=== PATIENT | female | born 1940 | race Caucasian/White ===

== ENCOUNTER 2018-02-18 16:41 | Inpatient (IN) | payer MEDICARE ==
[~2018-02-18] VITALS: Ht 152.4 cm; Wt 76.7 kg
[2018-02-18 17:01] VITALS: BP 105/84
[2018-02-18] MEDS ORDERED: ONDANSETRON ODT 4 MG TAB.RAPDIS PO PRN (18:15)
--- NOTE | 2018-02-18 18:27 | EKG ---
[address] [address] Test Date: 2018-02-18 Test Time: 18:07:09 Pat Name: ODILIA ROWAN Department: Room: 119 A Gender: F Director Of Audiology: ABHINAV : 1940 Requested By: KOURTNEY RUIZ Order Number: [id number] Reading MD: Everett Salazar MD Measurements Intervals [place] Rate: 152 P: [place]: QRS: 125 QRSD: 86 T: -42 QT: 308 QTc: 497 Interpretive Statements ATRIAL FIBRILLATION WITH RVR NON-SPECIFIC ST/T CHANGES CONSIDER PRIOR ANTERIOR INFARCT Electronically Signed On 02-23-2018 10:16:03 CDT by Everett Salazar MD
[2018-02-18 19:50] VITALS: BP 156/91
[2018-02-18 19:53] LABS: BASO % 0 % (0-3); EOS % 0 % (0-3); HEMOGLOBIN 14.6 g/dL (12.0-15.5); LYMPH # 1.6 x10^3/uL (1.0-4.8); LYMPH % 17 % (24-48); MEAN CORPUSCULAR HEMOGLOBIN 32 pg (25-35); MEAN CORPUSCULAR HGB CONC 34 g/dL (31-37); MEAN CORPUSCULAR VOLUME 94 fL (79-100); MONO # 0.9 x10^3/uL (0.0-1.1); MONO % 10 % (0-9); NEUT % 73 % (31-73); PLATELET COUNT 157 x10^3/uL (140-400); RED BLOOD COUNT 4.59 x10^6/uL (3.50-5.40); RED CELL DISTRIBUTION WIDTH 14.2 % (11.5-14.5); WHITE BLOOD COUNT 9.5 x10^3/uL (4.0-11.0)
[2018-02-18 20:03] LABS: ALBUMIN 3.5 g/dL (3.4-5.0); CALCIUM 8.8 mg/dL (8.5-10.1); CREATININE 0.6 mg/dL (0.6-1.0); GFR 96.4; POTASSIUM 3.4 mmol/L (3.5-5.1); TOTAL BILIRUBIN 0.9 mg/dL (0.2-1.0)
[2018-02-18] MEDS: IV NORMAL SALINE 1,000ML 1,000 ML IV SCH (20:11)
[2018-02-18] MEDS ORDERED: CYAN10005 PO (20:14)
[2018-02-18] MEDS ORDERED: LISI1TAB7 PO (20:14)
[2018-02-18] MEDS ORDERED: ASCO500T2 PO (20:14)
[2018-02-18] MEDS ORDERED: POTA20TA4 PO (20:14)
[2018-02-18] MEDS ORDERED: VERA240C2 PO (20:14)
[2018-02-18] MEDS ORDERED: CALC-157 PO (20:14)
[2018-02-18] MEDS ORDERED: OCCUVITE PO (20:14)
[2018-02-18] MEDS ORDERED: LEVO137T3 PO (20:14)
[2018-02-18] MEDS ORDERED: MELO7.5T29 PO (20:14)
[2018-02-18] MEDS ORDERED: FLUT1AER IH (20:22)
[2018-02-18] MEDS ORDERED: BUDESONIDE 0.5 MG/2 ML NEBU ONE (20:26)
[2018-02-18] MEDS ORDERED: ALBUTEROL SULFATE 2.5 MG/3 ML NEBU. ONE (20:26)
[2018-02-18] MEDS: ENOXAPARIN 40 MG/0.4 ML DISP.SYRIN. SQ SCH (21:00)
[2018-02-18 21:12] LABS: SEDIMENTATION RATE 20 (0-25)
[2018-02-18 21:45] LABS: BILIRUBIN,URINE NEG (NEG); CLARITY,URINE CLOUDY; COLOR,URINE YELLOW; GLUCOSE,URINE NEG (NEG); NITRITE,URINE NEG (NEG); UROBILINOGEN,URINE 1 mg/dL (0.2 mg/dL)
[2018-02-18 21:46] LABS: BACTERIA,URINE MOD /HPF (0-FEW); SQUAMOUS EPITHELIAL CELL,UR MANY /LPF; WBC,URINE >40 /HPF (0-4)
[2018-02-18 23:08] VITALS: BP 104/67
[2018-02-19] MEDS ORDERED: ALBUTEROL SULFATE 2.5 MG/3 ML NEBU. ONE (04:25)
[2018-02-19] MEDS: IV NORMAL SALINE 1,000ML 1,000 ML IV SCH ×3 (05:04→20:44)
[2018-02-19] MEDS: ALBUTEROL SULFATE 2.5 MG/3 ML NEBU. NEB SCH ×4 (05:42→20:08)
[2018-02-19 05:52] VITALS: BP 145/90
--- NOTE | 2018-02-19 07:37 | RAD ---
CT of the abdomen and pelvis without contrast, 02/18/2018: HISTORY: Vomiting and diarrhea Multidetector CT imaging was performed without oral or IV contrast as requested. There are mild streaky bibasilar opacities compatible with scarring and/or atelectasis. Right basilar parenchymal calcifications are present. There is a small pericardial effusion. Moderate scattered coronary artery calcifications are present. There are calcified granulomata in the liver and spleen. A small radiopacity is noted along the posterior wall the gallbladder compatible with a gallstone. No pericholecystic edema or gallbladder wall thickening is evident. No pancreatic mass is evident. Scattered calcifications in the pancreatic region are probably vascular. The spleen is of normal size. A small cortical cyst is noted along the posterior aspect of the left kidney. The unopacified kidneys are otherwise unremarkable without evidence of obstruction. Moderate aortoiliac calcific plaquing and tortuosity is present without evidence of aneurysm. No abdominal or pelvic adenopathy is seen. The uterus is surgically absent. Several sigmoid diverticula are noted without evidence of paracolic inflammation. The bowel loops are not dilated. The appendix is not clearly visualized. No dilated appendix or pericecal inflammatory process is seen. No free fluid or free air is evident in the abdomen or pelvis. There are moderate scattered degenerative changes in the spine with moderate degenerative disc disease at L5-S1. There is a mild anterolisthesis at L4-5 due to facet joint arthropathy. IMPRESSION: 1. Cholelithiasis. 2. Mild colonic diverticulosis. 3. Small pericardial effusion. 4. Coronary artery disease. 5. Moderate streaky bibasilar scarring and/or atelectasis. Electronically signed by: Juan Antonio Hitchcock MD (02/19/2018 7:34 AM) [facility]
[2018-02-19] MEDS ORDERED: CIPROFLOXACIN 400MG PREMIX 200 ML IV SCH (09:00)
[2018-02-19] MEDS ORDERED: NON FORMULARY ITEM (Fluticasone/Vilanterol (Breo Ellipta 100-25 Mcg Inh) 1 PUFF) IH SCH (09:00)
[2018-02-19 09:35] LABS: BASO % 1 % (0-3); EOS % 0 % (0-3); HEMATOCRIT 42.1 % (36.0-47.0); HEMOGLOBIN 14.1 g/dL (12.0-15.5); LYMPH # 0.8 x10^3/uL (1.0-4.8); LYMPH % 11 % (24-48); MEAN CORPUSCULAR HEMOGLOBIN 32 pg (25-35); MEAN CORPUSCULAR HGB CONC 34 g/dL (31-37); MEAN CORPUSCULAR VOLUME 94 fL (79-100); MONO # 0.8 x10^3/uL (0.0-1.1); MONO % 11 % (0-9); NEUT % 78 % (31-73); PLATELET COUNT 138 x10^3/uL (140-400); RED BLOOD COUNT 4.46 x10^6/uL (3.50-5.40); RED CELL DISTRIBUTION WIDTH 13.8 % (11.5-14.5); WHITE BLOOD COUNT 7.7 x10^3/uL (4.0-11.0)
[2018-02-19] MEDS: MULTIVITAMIN I-VITE TABLET. PO SCH (09:37)
[2018-02-19] MEDS: LISINOPRIL 20 MG TABLET PO SCH (09:38)
[2018-02-19] MEDS: hydroCHLOROthiazide 25 MG TABLET PO SCH (09:38)
[2018-02-19] MEDS: LEVOTHYROXINE 137 MCG TABLET PO SCH (09:38)
[2018-02-19] MEDS: POTASSIUM CHLORIDE 20 MEQ TABLET.ER. PO SCH (09:39)
[2018-02-19] MEDS: ASCORBIC ACID 500 MG TABLET PO SCH (09:39)
[2018-02-19] MEDS: ENOXAPARIN 40 MG/0.4 ML DISP.SYRIN. SQ SCH (09:40)
[2018-02-19 09:51] LABS: CREATININE 0.7 mg/dL (0.6-1.0); GFR 80.7
[2018-02-19 09:53] LABS: POTASSIUM 2.8 mmol/L (3.5-5.1)
[2018-02-19] MEDS ORDERED: POTASSIUM CHLORIDE 20 MEQ TABLET.ER. PO ONE ×2 (10:00→11:00)
[2018-02-19] MEDS: BUDESONIDE 0.5 MG/2 ML NEBU NEB SCH ×2 (10:42→20:08)
[2018-02-19 10:52] VITALS: BP 164/89
--- NOTE | 2018-02-19 11:28 | EKG ---
[address] [address] Test Date: 2018-02-19 Test Time: 11:25:16 Pat Name: ODILIA ROWAN Department: Room: 119 A Gender: F Traffic Coordinator: : 1940 Requested By: KOURTNEY RUIZ Order Number: [id number] Reading MD: Everett Salazar MD Measurements Intervals [place] Rate: 140 P: [place]: QRS: 108 QRSD: 86 T: -42 QT: 314 QTc: 483 Interpretive Statements ATRIAL FIBRILLATION WITH RVR LEFT POSTERIOR FASCICULAR BLOCK NON-SPECIFIC ST/T CHANGES Electronically Signed On 02-23-2018 10:17:49 CDT by Everett Salazar MD
[2018-02-19] MEDS: POTASSIUM CHLORIDE 20MEQ 100 ML IV SCH ×2 (11:59→12:49)
[2018-02-19] MEDS ORDERED: ELECTROLYTE (NON-ICU) PROTOCOL MC PRN (12:00)
[2018-02-19] MEDS ORDERED: ENOXAPARIN 40 MG/0.4 ML DISP.SYRIN. SQ SCH (12:15)
[2018-02-19] MEDS ORDERED: METOPROLOL TARTRATE 5 MG/5 ML VIAL. IV PRN (12:30)
[2018-02-19] MEDS: METOPROLOL TART IMMED RELEASE 50 MG TABLET PO SCH ×2 (12:49→20:41)
[2018-02-19] MEDS: APIXABAN 5 MG TABLET. PO SCH ×2 (12:49→20:41)
[2018-02-19] MEDS ORDERED: MAGNESIUM SULFATE 1GM 100 ML IV ONE (13:00)
--- NOTE | 2018-02-19 13:23 | PDOC2 ---
CARDIAC CONSULT DATE OF CONSULT Date Of Consult DATE: 02/19/18 TIME: 12:58 REASON FOR CONSULT Reason for Consult Atrial fibrillation with RVR REFERRING PHYSICIAN Referring Physician Joshua Sy MD HPI History of Present Illness Ms. Claros is a very pleasant 77-year-old female who is currently hospitalized after presenting with several day history of progressively worsening nausea, vomiting, and diarrhea. The patient does have a history of essential hypertension, hypothyroidism on thyroid replacement therapy, and obesity. She was last seen in our office by my associate, Keila Duran APRN, approximately 7 years ago. At that time, the patient did undergo an extensive cardiovascular evaluation which included a nuclear stress test and echocardiogram which were unremarkable. Unfortunately, she was subsequently lost to follow-up. During her hospitalization, the patient was noted to be in atrial fibrillation with rapid ventricular rate. It is not completely clear for how long the patient has been in such rhythm. Today, she reports that she has been having symptoms of chest tightness, but denies any actual chest pain symptoms. She has not been able to identify any exacerbating or relieving factors. Her workup did include electrolytes which demonstrated significant hypokalemia as well as mild hypomagnesemia. In addition, the patient did have a CT of the abdomen and pelvis which incidentally demonstrated evidence of coronary atherosclerosis. The patient denies any actual symptoms of palpitations, has not had any significant lightheadedness or syncope. She has otherwise remained hemodynamically stable without any further complaints. PAST MEDICAL HISTORY Cardiovascular: CAD, HTN Endocrine: Hypothyroidism PAST SURGICAL HISTORY Past Surgical History: No pertinent history FAMILY HISTORY Family History: No Significant SOCIAL HISTORY Smoke: No ALCOHOL: rare Drugs: None CURRENT MEDICATIONS Current Medications Current Medications Sodium Chloride 1,000 ml @ 100 mls/hr Q10H IV Last administered on 02/19/18at 05 :04; Start 02/18/18 at 18:15 Ondansetron HCl (Zofran Odt) 4 mg PRN Q4HRS PRN PO NAUSEA/VOMITING Last administered on 02/19/18at 10:25; Start 02/18/18 at 18:15 Enoxaparin Sodium (Lovenox) 40 mg Q24H SQ Last administered on 02/19/18at 09:40; Start 02/18/18 at 21:00; Stop 02/19/18 at 12:35; Status DC Non-Formulary Medication (Fluticasone/ Vilanterol (Breo Ellipta 100-25 Mcg Inh) ) 1 puff DAILY IH ; Start 02/19/18 at 09:00; Status UNV Albuterol Sulfate (Ventolin) 2.5 mg STK-MED ONCE .ROUTE Last administered on 02/18/18at 21:09; Start 02/18/18 at 20:26; Stop 02/18/18 at 20:27; Status DC Budesonide (Pulmicort) 0.5 mg STK-MED ONCE .ROUTE Last administered on at 21:08; Start 02/18/18 at 20:26; Stop 02/18/18 at 20:27; Status DC Albuterol Sulfate (Ventolin) 2.5 mg RTQID NEB Last administered on 02/19/18at 10: 42; Start 02/19/18 at 08:00 Budesonide (Pulmicort) 0.5 mg RTBID NEB Last administered on 02/19/18at 10:42; Start 02/19/18 at 08:00 Albuterol Sulfate (Ventolin) 2.5 mg STK-MED ONCE .ROUTE ; Start 02/19/18 at 04:25 ; Stop 02/19/18 at 04:26; Status DC Levofloxacin/ Dextrose 150 ml @ 150 mls/hr Q24H IV ; Start 02/19/18 at 09:00; Stop 02/19/18 at 09:00; Status DC Ciprofloxacin Lactate 200 ml @ 200 mls/hr Q12HR IV ; Start 02/19/18 at 09:00; Stop 02/19/18 at 09:00; Status DC Ascorbic Acid (Vitamin C) 500 mg DAILY PO Last administered on 02/19/18at 09:39; Start 02/19/18 at 09:00 Levothyroxine Sodium (Synthroid) 137 mcg DAILYAC PO Last administered on at 09:38; Start 02/19/18 at 09:00 Potassium Chloride (Klor-Con) 20 meq DAILY PO Last administered on 02/19/18at 09: 39; Start 02/19/18 at 09:00 Lisinopril (Prinivil) 20 mg DAILY PO Last administered on 02/19/18at 09:38; Start 02/19/18 at 09:00 Multivitamins/ Minerals (I-Doron) 1 tab DAILY PO Last administered on 02/19/18at 09:37; Start 02/19/18 at 09:00 Diltiazem HCl (Cardizem 24hr Cd) 120 mg DAILY PO Last administered on 02/19/18at 09:38; Start 02/19/18 at 09:00; Stop 02/19/18 at 12:02; Status DC Hydrochlorothiazide (Hydrodiuril) 25 mg DAILY PO Last administered on 02/19/18at 09:38; Start 02/19/18 at 09:00 Levofloxacin/ Dextrose 150 ml @ 150 mls/hr Q48H IV Last administered on at 09:33; Start 02/19/18 at 09:00 Potassium Chloride (Klor-Con) 40 meq 1X ONCE PO ; Start 02/19/18 at 10:00; Stop 02/19/18 at 10:23; Status DC Potassium Chloride (Klor-Con) 40 meq 1X ONCE PO ; Start 02/19/18 at 11:00; Stop 02/19/18 at 11:00; Status DC Potassium Chloride 100 ml @ 50 mls/hr Q1H IV Last administered on 02/19/18at 12: 49; Start 02/19/18 at 10:30; Stop 02/19/18 at 12:29; Status DC Enoxaparin Sodium (Lovenox) 40 mg Q24H SQ ; Start 02/19/18 at 12:15; Stop at 12:15; Status DC Info (Non-Icu Electrolyte Protocol) 1 ea CONT PRN PRN MC PER PROTOCOL; Start at 12:00 Verapamil HCl (Calan Sr) 360 mg DAILY PO ; Start 02/20/18 at 09:00; Stop 02/20/18 at 09:00; Status DC Metoprolol Tartrate (Lopressor Vial) 5 mg PRN Q5MIN PRN IV TACHYCARDIA; Start 02/19/18 at 12:30 Metoprolol Tartrate (Lopressor) 50 mg BID PO Last administered on 02/19/18at 12: 49; Start 02/19/18 at 12:30 Apixaban (Eliquis) 5 mg BID PO Last administered on 02/19/18at 12:49; Start at 12:30 Magnesium Sulfate 100 ml @ 100 mls/hr 1X ONCE IV ; Start 02/19/18 at 13:00; Stop 02/19/18 at 13:59 Active Scripts Active Reported Breo Ellipta 100-25 Mcg Inh (Fluticasone/Vilanterol) 1 Each Aer.pow.ba 1 Puff IH DAILY LAST DOSE GIVEN: DATE: TIME: NEXT DOSE DUE: DATE: TIME: Vitamin B-12 (Cyanocobalamin (Vitamin B-12)) 1,000 Mcg Tablet 1 Tab PO DAILY LAST DOSE GIVEN: DATE: TIME: NEXT DOSE DUE: DATE: TIME: Calcium 500 + Vit D 200 Tablet (Calcium Carbonate/Vitamin D3) 1 Each Tablet 2 Each PO DAILY LAST DOSE GIVEN: DATE: TIME: NEXT DOSE DUE: DATE: TIME: Vitamin C (Ascorbic Acid) 500 Mg Tablet 500 Mg PO DAILY LAST DOSE GIVEN: DATE: TIME: NEXT DOSE DUE: DATE: TIME: [Occuvite] 1 Tab PO DAILY LAST DOSE GIVEN: DATE: TIME: NEXT DOSE DUE: DATE: TIME: Verapamil Er (Verapamil Hcl) 240 Mg Cap24h.pel 1.5 Cap PO DAILY LAST DOSE GIVEN: DATE: TIME: NEXT DOSE DUE: DATE: TIME: Klor-Con M20 (Potassium Chloride) 20 Meq Tab.er.prt 1 Tab PO DAILY LAST DOSE GIVEN: DATE: TIME: NEXT DOSE DUE: DATE: TIME: Levothyroxine Sodium 137 Mcg Tablet 1 Tab PO DAILYAC LAST DOSE GIVEN: DATE: TIME: NEXT DOSE DUE: DATE: TIME: Meloxicam 7.5 Mg Tablet 1 Tab PO DAILY LAST DOSE GIVEN: DATE: TIME: NEXT DOSE DUE: DATE: TIME: Lisinopril-Hctz 20-25 Mg Tab (Lisinopril/Hydrochlorothiazide) 1 Each Tablet 1 Tab PO DAILY LAST DOSE GIVEN: DATE: TIME: NEXT DOSE DUE: DATE: TIME: ALLERGIES Allergies: Coded Allergies: prochlorperazine (Verified Allergy, Unknown, 02/18/18) ROS Review of Systems 14-point organ system ROS is negative other than as described above. PHYSICAL EXAM General: Alert, Oriented X3, Cooperative, No acute distress HEENT: Atraumatic, PERRLA, EOMI Lungs: Clear to auscultation, Normal air movement Heart: Other (Irregularly irregular, variable S1, no murmurs, rubs, or gallops. ) Abdomen: Normal bowel sounds Extremities: No clubbing, No cyanosis, No edema, Normal pulses Neuro: Normal speech, Cranial nerves 3-12 NL Psych/Mental Status: Mental status NL VITALS Vital Signs Vital Signs Date Time Temp Pulse Resp B/P (MAP) Pulse Ox O2 Delivery O2 Flow Rate FiO2 02/19/18 12:49 118 164/89 02/19/18 10:52 98.5 24 92 Nasal Cannula 2.0 LABS LABS Laboratory Tests Test 02/18/18 18:47 02/18/18 20:15 02/19/18 09:30 White Blood Count 9.5 x10^3/uL (4.0-11.0) 7.7 x10^3/uL (4.0-11.0) Red Blood Count 4.59 x10^6/uL (3.50-5.40) 4.46 x10^6/uL (3.50-5.40) Hemoglobin 14.6 g/dL (12.0-15.5) 14.1 g/dL (12.0-15.5) Hematocrit 43.0 % (36.0-47.0) 42.1 % (36.0-47.0) Mean Corpuscular Volume 94 fL (79-100) 94 fL (79-100) Mean Corpuscular Hemoglobin 32 pg (25-35) 32 pg (25-35) Mean Corpuscular Hemoglobin Concent 34 g/dL (31-37) 34 g/dL (31-37) Red Cell Distribution Width 14.2 % (11.5-14.5) 13.8 % (11.5-14.5) Platelet Count 157 x10^3/uL (140-400) 138 x10^3/uL (140-400) Neutrophils (%) (Auto) 73 % (31-73) 78 % (31-73) Lymphocytes (%) (Auto) 17 % (24-48) 11 % (24-48) Monocytes (%) (Auto) 10 % (0-9) 11 % (0-9) Eosinophils (%) (Auto) 0 % (0-3) 0 % (0-3) Basophils (%) (Auto) 0 % (0-3) 1 % (0-3) Neutrophils # (Auto) 7.0 x10^3uL (1.8-7.7) 6.0 x10^3uL (1.8-7.7) Lymphocytes # (Auto) 1.6 x10^3/uL (1.0-4.8) 0.8 x10^3/uL (1.0-4.8) Monocytes # (Auto) 0.9 x10^3/uL (0.0-1.1) 0.8 x10^3/uL (0.0-1.1) Eosinophils # (Auto) 0.0 x10^3/uL (0.0-0.7) 0.0 x10^3/uL (0.0-0.7) Basophils # (Auto) 0.0 x10^3/uL (0.0-0.2) 0.0 x10^3/uL (0.0-0.2) Erythrocyte Sedimentation Rate 20 (0-25) D-Dimer (Sujatha) 0.46 mg/L (0.00-0.50) Sodium Level 140 mmol/L (136-145) 143 mmol/L (136-145) Potassium Level 3.4 mmol/L (3.5-5.1) 2.8 mmol/L (3.5-5.1) Chloride Level 100 mmol/L (98-107) 103 mmol/L (98-107) Carbon Dioxide Level 30 mmol/L (21-32) 30 mmol/L (21-32) Anion Gap 10 (6-14) 10 (6-14) Blood Urea Nitrogen 17 mg/dL (7-20) 15 mg/dL (7-20) Creatinine 0.6 mg/dL (0.6-1.0) 0.7 mg/dL (0.6-1.0) Estimated GFR (Cockcroft-Gault) 96.4 80.7 BUN/Creatinine Ratio 28 (6-20) Glucose Level 121 mg/dL (70-99) 134 mg/dL (70-99) Lactic Acid Level 1.2 mmol/L (0.4-2.0) Calcium Level 8.8 mg/dL (8.5-10.1) 8.0 mg/dL (8.5-10.1) Total Bilirubin 0.9 mg/dL (0.2-1.0) Aspartate Amino Transf (AST/SGOT) 27 U/L (15-37) Alanine Aminotransferase (ALT/SGPT) 25 U/L (14-59) Alkaline Phosphatase 60 U/L (46-116) Total Protein 7.0 g/dL (6.4-8.2) Albumin 3.5 g/dL (3.4-5.0) Albumin/Globulin Ratio 1.0 (1.0-1.7) Urine Collection Type Unknown Urine Color Yellow Urine Clarity Cloudy Urine pH 6.0 Urine Specific [place] 1.025 Urine Protein 100 mg/dl (NEG-TRACE) Urine Glucose (UA) Neg mg/dL (NEG) Urine Ketones (Stick) 15 mg/dL (NEG) Urine Blood Small (NEG) Urine Nitrite Neg (NEG) Urine Bilirubin Neg (NEG) Urine Urobilinogen Dipstick 1 mg/dL (0.2 mg/dL) Urine Leukocyte Esterase Mod (NEG) Urine RBC 3-5 /HPF (0-2) Urine WBC >40 /HPF (0-4) Urine Squamous Epithelial Cells Many /LPF Urine Bacteria Mod /HPF (0-FEW) Urine Mucus Mod /LPF Magnesium Level 1.9 mg/dL (1.8-2.4) EKG EKG Atial fibrillation with RVR ASSESSMENT/PLAN Assessment/Plan 1. Atrial fibrillation with rapid ventricular rates 2. Essential hypertension 3. CAD based on incidental CT findings 4. Mixed hyperlipidemia 5. Hypokalemia 6. Nausea/vomiting/diarrhea 7. Abnormal ECG Ms. Claros is currently hospitalized after presenting with several days history of progressive diarrhea, nausea, vomiting, and abdominal discomfort. The patient was noted to be quite hypokalemic. She has been having symptoms of chest tightness, but denies any actual typical anginal symptoms otherwise. The patient has not had any significant palpitations, and has remained hemodynamically stable. She was subsequently placed on telemetry, and was incidentally found to be in atrial fibrillation with rapid ventricular rates. As far as the patient knows, she has never been told she has atrial fibrillation in the past, and this does seem to be a relatively new diagnosis for her. Unfortunately, the patient has been lost to follow-up in our office, has not been seen since 2010. At this point in time, I suspect that her atrial fibrillation, at least to some degree, may be related to her acute metabolic stressors. With her progressive nausea, vomiting, and diarrhea, I suspect that electrolyte imbalance and dehydration may be playing an important role. Therefore, I think it would be reasonable to continue to monitor electrolytes closely, and keep potassium greater than 4, and magnesium greater than 2. In addition, I have taken the liberty of starting her on a rate control strategy. I have discontinued her verapamil, and instead, we will place her on metoprolol tartrate 50 mg b.i.d., particularly given the fact that she has incidental evidence of coronary atherosclerosis noted on CT study. I have also ordered metoprolol 5 mg IV to be given on a as needed basis if heart rates are greater than 120 beats per minute. The patient does have underlying risk factors for embolic stroke associated her atrial fibrillation, and I think she would benefit from chronic anticoagulation for embolic stroke prophylaxis. As a result, I have taken the liberty of placing her on apixaban 5 mg b.i.d.. Ultimately, the patient will need to undergo further cardiac diagnostic testing given her new findings. I think she would benefit from an echocardiogram to evaluate cardiac structure and function further, as well as a ischemic evaluation with a nuclear stress test. If patient is stable to be discharged a few days, this workup may be completed in the outpatient setting in our office. Ultimately, it may be reasonable to consider cardioversion of the patient remains persistently in atrial fibrillation and is noted to be symptomatic. Thank you for allowing me to participate in the care of your patient. Should you have any further questions, please do not hesitate to contact me. We will continue to follow along. CIRILO GUERRERO MD February 19, 2018 13:23
--- NOTE | 2018-02-19 14:44 | RAD ---
Chest, 2 views, 02/19/2018: HISTORY: New onset of atrial fibrillation No previous studies available at this time for comparison purposes. The heart is moderately enlarged. There is calcific plaquing of the aorta. The pulmonary vascularity is prominent. There are streaky bilateral perihilar and a similar opacities suggesting atelectasis and/or scarring. No pleural fluid is seen. Moderate scattered degenerative changes are evident in the spine. IMPRESSION: 1. Cardiomegaly and aortic atherosclerosis. 2. Borderline vascular congestion. 3. Moderate streaky atelectasis and/or scarring in the perihilar regions and lung bases. Electronically signed by: Juan Antonio Hitchcock MD (02/19/2018 2:41 PM) [facility]
[2018-02-19 15:04] VITALS: BP 119/67
--- NOTE | 2018-02-19 17:35 | RAD ---
ABDOMEN COMPLETE History: Abdominal pain Comparison: None. Findings: Multiple sonographic images of the abdomen are submitted. Right kidney measured 12.5 x 4.7 x 4.1. Left kidney measured 11.9 x 5.9 x 5.6 cm. There is no hydronephrosis of either kidney. There is no abnormality of the visualized pancreas. Gallbladder is present, some internal echogenicity probably due to cholelithiasis. Common bile duct is within normal limits at 0.3 cm. No focal hepatic abnormality is demonstrated. Right lobe of the liver measured 16.6 cm longitudinal. Hepatic echotexture is within normal limits. Spleen is not well-visualized, likely granulomas present. Abdominal aorta is also not well visualized due to bowel gas. There is segmental visualization of the inferior vena cava. Impression: 1. There is cholelithiasis, no other significant abnormality identified. Electronically signed by: Onur Tucker MD (02/19/2018 5:32 PM) [id number]
[2018-02-19 19:00] VITALS: BP 134/85
--- NOTE | 2018-02-19 23:53 | PN ---
DATE: SUBJECTIVE: A 77-year-old female admitted with nausea, vomiting, diarrhea, pyelonephritis. The patient is receiving IV antibiotic therapy. Blood sugar is slightly elevated, otherwise seems to be doing a little better, but still very ill. Blood pressure is approximately 140/90, respiratory 18, pulse upwards of 128, temperature 98.4, refused Lovenox treatments last night. The patient otherwise seems to be resting fairly comfortably. Her abdomen and pelvic CT showed she did have gallstones ____ a pelvic ultrasound; also history of coronary artery disease. Per CT scan showed calcification. The patient continued to be monitored. OBJECTIVE: LUNGS: Clear. CARDIOVASCULAR: Stable. ABDOMEN: Soft, diffuse tenderness. No rebounding or guarding except for some mild tenderness in the right upper quadrant area. IMPRESSION AND PLAN: Abdominal pain with nausea, vomiting, diarrhea, cholelithiasis, continue to monitor the patient, also pyelonephritis. Continue on IV antibiotic therapy and make further evaluation as indicated. KOURTNEY RUIZ MD DR: SYED/santhosh JOB#: [id number] / [id number]
[2018-02-20] MEDS ORDERED: ACETAMINOPHEN 325 MG TABLET PO PRN (01:45)
[2018-02-20] MEDS: ALBUTEROL SULFATE 2.5 MG/3 ML NEBU. NEB SCH ×4 (05:13→21:10)
[2018-02-20] MEDS: LEVOTHYROXINE 137 MCG TABLET PO SCH (07:40)
[2018-02-20 08:17] VITALS: BP 141/91
[2018-02-20 08:59] LABS: BASO % 0 % (0-3); EOS % 0 % (0-3); HEMATOCRIT 39.2 % (36.0-47.0); HEMOGLOBIN 13.1 g/dL (12.0-15.5); LYMPH % 16 % (24-48); MEAN CORPUSCULAR HEMOGLOBIN 32 pg (25-35); MEAN CORPUSCULAR HGB CONC 33 g/dL (31-37); MEAN CORPUSCULAR VOLUME 94 fL (79-100); MONO # 0.8 x10^3/uL (0.0-1.1); MONO % 14 % (0-9); NEUT # 4.2 x10^3uL (1.8-7.7); NEUT % 70 % (31-73); PLATELET COUNT 130 x10^3/uL (140-400); RED BLOOD COUNT 4.15 x10^6/uL (3.50-5.40); RED CELL DISTRIBUTION WIDTH 13.9 % (11.5-14.5); WHITE BLOOD COUNT 6.1 x10^3/uL (4.0-11.0)
[2018-02-20] MEDS ORDERED: VERAPAMIL SR 180 MG TABLET.ER. PO SCH (09:00)
[2018-02-20 09:08] LABS: CALCIUM 7.4 mg/dL (8.5-10.1); CREATININE 0.5 mg/dL (0.6-1.0); POTASSIUM 2.9 mmol/L (3.5-5.1)
[2018-02-20] MEDS: ASCORBIC ACID 500 MG TABLET PO SCH (09:28)
[2018-02-20] MEDS: LISINOPRIL 20 MG TABLET PO SCH (09:28)
[2018-02-20] MEDS: MULTIVITAMIN I-VITE TABLET. PO SCH (09:28)
[2018-02-20] MEDS: METOPROLOL TART IMMED RELEASE 50 MG TABLET PO SCH ×2 (09:29→20:12)
[2018-02-20] MEDS: APIXABAN 5 MG TABLET. PO SCH ×2 (09:29→20:13)
[2018-02-20] MEDS: POTASSIUM CHLORIDE 20 MEQ TABLET.ER. PO SCH (09:29)
[2018-02-20] MEDS: hydroCHLOROthiazide 25 MG TABLET PO SCH (09:29)
[2018-02-20] MEDS: BUDESONIDE 0.5 MG/2 ML NEBU NEB SCH ×2 (09:29→21:11)
[2018-02-20] MEDS: POTASSIUM CHLORIDE 20 MEQ/15 ML ORAL LIQUID. FT SCH ×2 (09:30→12:26)
[2018-02-20] MEDS: MAGNESIUM CHLORIDE ER 64 MG TABLET.ER PO SCH (10:38)
[2018-02-20 11:06] VITALS: BP 133/81
[2018-02-20] MEDS: CALCIUM CARBONATE 500 MG TABLET PO SCH ×2 (12:26→18:00)
[2018-02-20 15:22] VITALS: BP 157/89
[2018-02-20 19:08] VITALS: BP 116/87
[2018-02-20] MEDS ORDERED: dilTIAZem HCL 30 MG TABLET PO ONE (19:30)
[2018-02-20] MEDS: LACTOBACILLUS RHAMNOSUS GG 1 CAPSULE. PO SCH (20:12)
[2018-02-20 22:54] VITALS: BP 112/77
--- NOTE | 2018-02-21 02:16 | PN ---
DATE: 02/20/2018 SUBJECTIVE: A 77-year-old female here at [facility]. She initially with nausea, vomiting, abdominal pain, but now has developed atrial fibrillation with rapid ventricular response. On discussing whether she had it prior to admission, she was having episodes of palpitations or fluttering in her chest prior, but she did not know what it was. In any case, she seems to be making good progress. Her potassium is still low, but she is on a replacement protocol. The patient otherwise seems to be making good progress. She is being treated for her bladder infection as well. The final culture on the urine is still pending. PHYSICAL EXAMINATION: VITAL SIGNS: Blood pressure today is 140/90, respiratory rate 20, pulse 73, afebrile. LUNGS: Clear. CARDIOVASCULAR: Irregularly irregular rhythm. ABDOMEN: Soft, nontender, much improved. EXTREMITIES: No clubbing, cyanosis. There is edema. Should be ____ on Lasix. Chest x-ray showed some mild congestion. In any case, the patient will continue to be monitored for atrial fibrillation with rapid ventricular response, nausea, vomiting, urinary tract infection of unknown etiology and fluid retention. KOURTNEY RUIZ MD DR: SYED/santhosh JOB#: [id number] / [id number]
[2018-02-21] MEDS: ALBUTEROL SULFATE 2.5 MG/3 ML NEBU. NEB SCH ×4 (05:27→20:05)
[2018-02-21 05:46] VITALS: BP 132/90
[2018-02-21] MEDS: LEVOTHYROXINE 137 MCG TABLET PO SCH (07:27)
[2018-02-21 07:56] LABS: CREATININE 0.6 mg/dL (0.6-1.0); GFR 96.4; POTASSIUM 3.4 mmol/L (3.5-5.1)
[2018-02-21] MEDS: BUDESONIDE 0.5 MG/2 ML NEBU NEB SCH ×2 (09:18→20:05)
[2018-02-21] MEDS: MAGNESIUM CHLORIDE ER 64 MG TABLET.ER PO SCH (10:07)
[2018-02-21] MEDS: METOPROLOL TART IMMED RELEASE 50 MG TABLET PO SCH ×2 (10:08→20:27)
[2018-02-21] MEDS: LACTOBACILLUS RHAMNOSUS GG 1 CAPSULE. PO SCH ×2 (10:08→20:26)
[2018-02-21] MEDS: APIXABAN 5 MG TABLET. PO SCH ×2 (10:08→20:26)
[2018-02-21] MEDS: ASCORBIC ACID 500 MG TABLET PO SCH (10:08)
[2018-02-21] MEDS: LISINOPRIL 20 MG TABLET PO SCH (10:09)
[2018-02-21] MEDS: MULTIVITAMIN I-VITE TABLET. PO SCH (10:09)
[2018-02-21] MEDS: POTASSIUM CHLORIDE 20 MEQ TABLET.ER. PO SCH (10:09)
[2018-02-21] MEDS: FUROSEMIDE 20 MG TABLET PO SCH (10:10)
[2018-02-21] MEDS: CALCIUM CARBONATE 500 MG TABLET PO SCH ×3 (10:10→16:52)
[2018-02-21 11:02] VITALS: BP 119/76
[2018-02-21 14:45] VITALS: BP 113/75
[2018-02-21 19:32] VITALS: BP 143/89
[2018-02-21 23:00] VITALS: BP 117/77
[2018-02-22] MEDS: ALBUTEROL SULFATE 2.5 MG/3 ML NEBU. NEB SCH ×2 (05:32→08:48)
[2018-02-22 05:48] VITALS: BP 147/94
--- NOTE | 2018-02-22 08:20 | PN ---
DATE: 02/21/2018 SUBJECTIVE: The patient still in atrial fib with her vital signs seem to be slowing down. OBJECTIVE: VITAL SIGNS: Blood pressure 120/70, respiratory rate 20, pulse 82-104. GENERAL: The patient is alert and oriented. LUNGS: Diminished throughout, but clear. CARDIOVASCULAR: Irregularly irregular rhythm. LABORATORY DATA: The patient's urine, final culture is still pending. We will continue to monitor that. Platelets are slightly low, otherwise she is doing much better. Potassium up to 3.4, calcium up to 8, magnesium up to 2.3. IMPRESSION: Atrial fibrillation with rapid ventricular response as well as urinary tract infection, unknown etiology, nausea, vomiting and fluid retention and thrombocytopenia. She is on chronic anticoagulation for her atrial fib and follow up with Cardiology. PLAN: We will continue with IV antibiotic until we get cultures back on her urine. KOURTNEY RUIZ MD DR: SYED/santhosh JOB#: [id number] / [id number]
[2018-02-22] MEDS: BUDESONIDE 0.5 MG/2 ML NEBU NEB SCH (08:49)
--- NOTE | 2018-02-22 08:56 | PDOC ---
SOURAV EARLY RIVET THROWER 02/22/18 0856: PROGRESS NOTES Assessment We are seeing the patient for atrial fibrillation Atrial fibrillation, paroxysmal (new onset). Currently in atrial fibrillation with a reasonably controlled ventricular rate. CHADSVasc score is >2 and she is on Eliquis for anticoagulation. Plan for echocardiogram as OP. 30 days of anticoagulation then can assess for cardioversion vs rate control. Chest tightness of admit with AR ruled out/CAD based on incidental CT findings - Plan for OP nuclear stress test Essential hypertension - Controlled continue current medications. Mixed hyperlipidemia - Not on meds, check fasting lipids Abnormal ECG - Plan for OP stress Problems: Subjective She is sitting up at bedside and eating breakfast without chest pain or dyspnea. No palpitations. Would like to go home. Objective Vital Signs Date Time Temp Pulse Resp B/P (MAP) Pulse Ox O2 Delivery O2 Flow Rate FiO2 02/22/18 05:48 97.6 85 18 147/94 (111) 94 Nasal Cannula 2.0 Intake and Output 02/22/18 07:00 Intake Total 1410 ml Balance 1410 ml Intake Oral 1410 ml # Voids 2 Abdomen: Normal bowel sounds, Soft, No tenderness Heart: Normal S1, Normal S2, Other (Irregular rhythm) Extremities: No edema, Normal pulses General: Alert, Oriented X3, Cooperative HEENT: EOMI, Mucous membr. moist/pink Lungs: Clear to auscultation Psych/Mental Status: Mental status NL, Mood NL Review of Relevant I have reviewed the following items maude (where applicable) has been applied. Labs Laboratory Tests Test 02/20/18 08:50 02/20/18 14:55 02/21/18 07:28 02/22/18 06:40 White Blood Count 6.1 x10^3/uL (4.0-11.0) Red Blood Count 4.15 x10^6/uL (3.50-5.40) Hemoglobin 13.1 g/dL (12.0-15.5) Hematocrit 39.2 % (36.0-47.0) Mean Corpuscular Volume 94 fL (79-100) Mean Corpuscular Hemoglobin 32 pg (25-35) Mean Corpuscular Hemoglobin Concent 33 g/dL (31-37) Red Cell Distribution Width 13.9 % (11.5-14.5) Platelet Count 130 x10^3/uL (140-400) Neutrophils (%) (Auto) 70 % (31-73) Lymphocytes (%) (Auto) 16 % (24-48) Monocytes (%) (Auto) 14 % (0-9) Eosinophils (%) (Auto) 0 % (0-3) Basophils (%) (Auto) 0 % (0-3) Neutrophils # (Auto) 4.2 x10^3uL (1.8-7.7) Lymphocytes # (Auto) 1.0 x10^3/uL (1.0-4.8) Monocytes # (Auto) 0.8 x10^3/uL (0.0-1.1) Eosinophils # (Auto) 0.0 x10^3/uL (0.0-0.7) Basophils # (Auto) 0.0 x10^3/uL (0.0-0.2) Sodium Level 142 mmol/L (136-145) 142 mmol/L (136-145) Potassium Level 2.9 mmol/L (3.5-5.1) 3.8 mmol/L (3.5-5.1) 3.4 mmol/L (3.5-5.1) 3.6 mmol/L (3.5-5.1) Chloride Level 105 mmol/L (98-107) 105 mmol/L (98-107) Carbon Dioxide Level 28 mmol/L (21-32) 29 mmol/L (21-32) Anion Gap 9 (6-14) 8 (6-14) Blood Urea Nitrogen 9 mg/dL (7-20) 13 mg/dL (7-20) Creatinine 0.5 mg/dL (0.6-1.0) 0.6 mg/dL (0.6-1.0) Estimated GFR (Cockcroft-Gault) 119.0 96.4 Glucose Level 102 mg/dL (70-99) 93 mg/dL (70-99) Calcium Level 7.4 mg/dL (8.5-10.1) 8.0 mg/dL (8.5-10.1) Magnesium Level 2.3 mg/dL (1.8-2.4) Microbiology 02/18/18 Blood Culture - Preliminary, Resulted NO GROWTH AFTER 3 DAYS 02/18/18 Urine Culture - Final, Complete 02/18/18 Urine Culture Result 1 (SHAHRIAR) - Final, Complete Medications Current Medications Sodium Chloride 1,000 ml @ 100 mls/hr Q10H IV Last administered on 02/19/18 20 :44; Start 02/18/18 at 18:15; Stop 02/20/18 at 09:38; Status DC Ondansetron HCl (Zofran Odt) 4 mg PRN Q4HRS PRN PO NAUSEA/VOMITING Last administered on 02/19/18 10:25; Start 02/18/18 at 18:15 Enoxaparin Sodium (Lovenox) 40 mg Q24H SQ Last administered on 02/19/18 09:40; Start 02/18/18 at 21:00; Stop 02/19/18 at 12:35; Status DC Non-Formulary Medication (Fluticasone/ Vilanterol (Breo Ellipta 100-25 Mcg Inh) ) 1 puff DAILY IH ; Start 02/19/18 at 09:00; Status UNV Albuterol Sulfate (Ventolin) 2.5 mg STK-MED ONCE .ROUTE Last administered on 21:09; Start 02/18/18 at 20:26; Stop 02/18/18 at 20:27; Status DC Budesonide (Pulmicort) 0.5 mg STK-MED ONCE .ROUTE Last administered on 21:08; Start 02/18/18 at 20:26; Stop 02/18/18 at 20:27; Status DC Albuterol Sulfate (Ventolin) 2.5 mg RTQID NEB Last administered on 02/22/18at 05: 32; Start 02/19/18 at 08:00 Budesonide (Pulmicort) 0.5 mg RTBID NEB Last administered on 02/21/18at 20:05; Start 02/19/18 at 08:00 Albuterol Sulfate (Ventolin) 2.5 mg STK-MED ONCE .ROUTE ; Start 02/19/18 at 04:25 ; Stop 02/19/18 at 04:26; Status DC Levofloxacin/ Dextrose 150 ml @ 150 mls/hr Q24H IV ; Start 02/19/18 at 09:00; Stop 02/19/18 at 09:00; Status DC Ciprofloxacin Lactate 200 ml @ 200 mls/hr Q12HR IV ; Start 02/19/18 at 09:00; Stop 02/19/18 at 09:00; Status DC Ascorbic Acid (Vitamin C) 500 mg DAILY PO Last administered on 02/21/18 10:08; Start 02/19/18 at 09:00 Levothyroxine Sodium (Synthroid) 137 mcg DAILYAC PO Last administered on 07:27; Start 02/19/18 at 09:00 Potassium Chloride (Klor-Con) 20 meq DAILY PO Last administered on 02/21/18 10: 09; Start 02/19/18 at 09:00 Lisinopril (Prinivil) 20 mg DAILY PO Last administered on 02/21/18 10:09; Start 02/19/18 at 09:00 Multivitamins/ Minerals (I-Doron) 1 tab DAILY PO Last administered on 02/21/18 10:09; Start 02/19/18 at 09:00 Diltiazem HCl (Cardizem 24hr Cd) 120 mg DAILY PO Last administered on 02/19/18 09:38; Start 02/19/18 at 09:00; Stop 02/19/18 at 12:02; Status DC Hydrochlorothiazide (Hydrodiuril) 25 mg DAILY PO Last administered on 02/20/18 09:29; Start 02/19/18 at 09:00; Stop 02/20/18 at 09:38; Status DC Levofloxacin/ Dextrose 150 ml @ 150 mls/hr Q48H IV Last administered on at 10:07; Start 02/19/18 at 09:00 Potassium Chloride (Klor-Con) 40 meq 1X ONCE PO ; Start 02/19/18 at 10:00; Stop 02/19/18 at 10:23; Status DC Potassium Chloride (Klor-Con) 40 meq 1X ONCE PO ; Start 02/19/18 at 11:00; Stop 02/19/18 at 11:00; Status DC Potassium Chloride 100 ml @ 50 mls/hr Q1H IV Last administered on 02/19/18at 12: 49; Start 02/19/18 at 10:30; Stop 02/19/18 at 12:29; Status DC Enoxaparin Sodium (Lovenox) 40 mg Q24H SQ ; Start 02/19/18 at 12:15; Stop at 12:15; Status DC Info (Non-Icu Electrolyte Protocol) 1 ea CONT PRN PRN MC PER PROTOCOL; Start at 12:00 Verapamil HCl (Calan Sr) 360 mg DAILY PO ; Start 02/20/18 at 09:00; Stop 02/20/18 at 09:00; Status DC Metoprolol Tartrate (Lopressor Vial) 5 mg PRN Q5MIN PRN IV TACHYCARDIA Last administered on 02/20/18 16:24; Start 02/19/18 at 12:30 Metoprolol Tartrate (Lopressor) 50 mg BID PO Last administered on 02/21/18 20: 27; Start 02/19/18 at 12:30 Apixaban (Eliquis) 5 mg BID PO Last administered on 02/21/18 20:26; Start at 12:30 Magnesium Sulfate 100 ml @ 100 mls/hr 1X ONCE IV Last administered on 13:30; Start 02/19/18 at 13:00; Stop 02/19/18 at 13:59; Status DC Acetaminophen (Tylenol) 650 mg PRN Q6HRS PRN PO PAIN / TEMP Last administered on 02/20/18 03:08; Start 02/20/18 at 01:45 Potassium Chloride (KCl Oral Soln) 40 meq Q4H FT Last administered on 02/20/18 12:26; Start 02/20/18 at 09:15; Stop 02/20/18 at 13:16; Status DC Lactobacillus Rhamnosus (Culturelle) 1 cap BID PO Last administered on 20:26; Start 02/20/18 at 21:00 Furosemide (Lasix) 20 mg DAILY PO Last administered on 02/21/18 10:10; Start at 09:00 Magnesium Chloride (Mag Delay) 64 mg DAILY PO Last administered on 02/21/18 10: 07; Start 02/20/18 at 10:30 Calcium Carbonate/ Glycine (Oscal) 500 mg TIDAFTMEAL PO Last administered on 16:52; Start 02/20/18 at 13:00 Diltiazem HCl (Cardizem 24hr Cd) 180 mg 1X ONCE PO Last administered on 5/5/ 18at 20:09; Start 02/20/18 at 19:30; Stop 02/20/18 at 19:31; Status DC Diltiazem HCl (Cardizem) 60 mg 1X ONCE PO Last administered on 02/20/18at 20:09 ; Start 02/20/18 at 19:30; Stop 02/20/18 at 19:31; Status DC Diltiazem HCl (Cardizem 24hr Cd) 240 mg DAILY PO Last administered on 02/21/18at 10:09; Start 02/21/18 at 09:00 Active Scripts Active Reported Breo Ellipta 100-25 Mcg Inh (Fluticasone/Vilanterol) 1 Each Aer.pow.ba 1 Puff IH DAILY LAST DOSE GIVEN: DATE: TIME: NEXT DOSE DUE: DATE: TIME: Vitamin B-12 (Cyanocobalamin (Vitamin B-12)) 1,000 Mcg Tablet 1 Tab PO DAILY LAST DOSE GIVEN: DATE: TIME: NEXT DOSE DUE: DATE: TIME: Calcium 500 + Vit D 200 Tablet (Calcium Carbonate/Vitamin D3) 1 Each Tablet 2 Each PO DAILY LAST DOSE GIVEN: DATE: TIME: NEXT DOSE DUE: DATE: TIME: Vitamin C (Ascorbic Acid) 500 Mg Tablet 500 Mg PO DAILY LAST DOSE GIVEN: DATE: TIME: NEXT DOSE DUE: DATE: TIME: [Occuvite] 1 Tab PO DAILY LAST DOSE GIVEN: DATE: TIME: NEXT DOSE DUE: DATE: TIME: Verapamil Er (Verapamil Hcl) 240 Mg Cap24h.pel 1.5 Cap PO DAILY LAST DOSE GIVEN: DATE: TIME: NEXT DOSE DUE: DATE: TIME: Klor-Con M20 (Potassium Chloride) 20 Meq Tab.er.prt 1 Tab PO DAILY LAST DOSE GIVEN: DATE: TIME: NEXT DOSE DUE: DATE: TIME: Levothyroxine Sodium 137 Mcg Tablet 1 Tab PO DAILYAC LAST DOSE GIVEN: DATE: TIME: NEXT DOSE DUE: DATE: TIME: Meloxicam 7.5 Mg Tablet 1 Tab PO DAILY LAST DOSE GIVEN: DATE: TIME: NEXT DOSE DUE: DATE: TIME: Lisinopril-Hctz 20-25 Mg Tab (Lisinopril/Hydrochlorothiazide) 1 Each Tablet 1 Tab PO DAILY LAST DOSE GIVEN: DATE: TIME: NEXT DOSE DUE: DATE: TIME: Vitals/I & O Vital Sign - Last 24 Hours 02/21/18 02/21/18 02/21/18 02/21/18 09:19 10:08 10:09 10:09 Pulse 82 82 82 B/P (MAP) 132/90 132/90 132/90 O2 Delivery Nasal Cannula O2 Flow Rate 2.0 02/21/18 02/21/18 02/21/18 02/21/18 11:02 14:45 15:14 19:32 Temp 97.6 97.6 98.0 Pulse 104 70 94 Resp 20 20 16 B/P (MAP) 119/76 (90) 113/75 (88) 143/89 (107) Pulse Ox 92 99 87 94 O2 Delivery Room Air Room Air Room Air Nasal Cannula O2 Flow Rate 2.0 02/21/18 02/21/18 02/21/18 02/21/18 20:00 20:05 20:09 20:27 Pulse 94 B/P (MAP) 143/89 Pulse Ox 92 O2 Delivery Room Air Room Air Room Air 02/21/18 02/22/18 02/22/18 23:00 05:34 05:48 Temp 97.6 Pulse 72 85 Resp 17 18 B/P (MAP) 117/77 (90) 147/94 (111) Pulse Ox 96 89 94 O2 Delivery Nasal Cannula Room Air Nasal Cannula O2 Flow Rate 2.0 2.0 Intake and Output 02/21/18 02/21/18 02/22/18 15:00 23:00 07:00 Intake Total 480 ml 480 ml 450 ml Balance 480 ml 480 ml 450 ml JEFF GRANDA MD 02/22/18 0931: PROGRESS NOTES Assessment I have participated in the care of this patient and I have reviewed and agree with all pertinent clinical information above including history, exam, and recommendations. She is feeling better. Her diarrhea is resolved. She does feel slightly short of breath with ambulation. Constitutional: Well developed, well nourished, no acute distress, non-toxic appearance. HENT: Normocephalic, atraumatic, bilateral external ears normal, oropharynx moist, no oral exudates, nose normal. Eyes: HERIBERTO, EOMI, conjunctiva normal, no discharge. Neck: Normal range of motion, no tenderness, supple, no stridor. Cardiovascular: First and second heart sounds, irregularly irregular, 2 x 6 ejection systolic murmur Thorax and Lungs: Basal Crackles Abdomen: Bowel sounds normal, soft, no tenderness, no masses, no pulsatile masses. Skin: Warm, dry, no erythema, no rash. Back: No tenderness, no CVA tenderness. Extremities: Intact distal pulses, no tenderness, no cyanosis, no clubbing, ROM intact, no edema. Neurologic: Alert and oriented X 3, normal motor function, normal sensory function, no focal deficits noted. Psychologic: Affect normal, judgement normal, mood normal. IMPRESSION Atrial fibrillation with rapid ventricular rate: Her rates are better compared to her admission however her I will increase the Cardizem CD 240 11/21/59 milligrams she is on anticoagulation with liquids. She does have some shortness of breath which could be related to the rapid ventricular rate. The duration and onset of atrial flutter ablation is uncertain. He might benefit from rhythm control depending upon the findings of her transthoracic echo. Attention: Her blood pressure is borderline elevated on a combination of lisinopril and Cardizem. We are increasing the Cardizem as above. Abnormal EKG: ST and T-wave abnormalities. Her troponins are negative. She may have LVH. Diarrhea: This appears to be a possible while etiology. This has settled. History of sarcoidosis: Have some evidence of probably scarring. She is status post 2 surgeries the last being in 2001. Coronary disease: Coronary calcification noted in her chest CT. there is any angina. She will need stress myocardial perfusion scan later on Problems: SOURAV EARLY APRN February 22, 2018 08:56 JEFF GRANDA MD February 22, 2018 09:31
[2018-02-22] MEDS: MULTIVITAMIN I-VITE TABLET. PO SCH (09:29)
[2018-02-22] MEDS: ASCORBIC ACID 500 MG TABLET PO SCH (09:29)
[2018-02-22] MEDS: CALCIUM CARBONATE 500 MG TABLET PO SCH ×2 (09:29→12:31)
[2018-02-22] MEDS: LEVOTHYROXINE 137 MCG TABLET PO SCH (09:29)
[2018-02-22] MEDS: FUROSEMIDE 20 MG TABLET PO SCH (09:30)
[2018-02-22] MEDS: MAGNESIUM CHLORIDE ER 64 MG TABLET.ER PO SCH (09:30)
[2018-02-22] MEDS: POTASSIUM CHLORIDE 20 MEQ TABLET.ER. PO SCH (09:30)
[2018-02-22] MEDS: LACTOBACILLUS RHAMNOSUS GG 1 CAPSULE. PO SCH (09:30)
[2018-02-22] MEDS: METOPROLOL TART IMMED RELEASE 50 MG TABLET PO SCH (09:30)
[2018-02-22] MEDS: APIXABAN 5 MG TABLET. PO SCH (09:30)
[2018-02-22] MEDS: LISINOPRIL 20 MG TABLET PO SCH (09:31)
[2018-02-22 09:39] VITALS: BP 147/94
[2018-02-22] MEDS ORDERED: levoFLOXacin 250 MG TABLET PO SCH (10:00)
[2018-02-22] MEDS ORDERED: ACET325T9 PO (13:28)
[2018-02-22] MEDS ORDERED: APIX5TAB3 PO (13:28)
[2018-02-22] MEDS ORDERED: Magnesium Chloride Er PO (13:28)
[2018-02-22] MEDS ORDERED: FURO20TA3 PO (13:28)
[2018-02-22] MEDS ORDERED: LISI-334 PO (13:28)
[2018-02-22] MEDS ORDERED: METO50TA6 PO (13:28)
[2018-02-22] MEDS ORDERED: DILT180C29 PO (13:28)
--- NOTE | 2018-02-23 10:10 | CARD ---
MR#: [id number] Account#: Date of Study: 02/22/2018 Ordering Physician: Darinel: Daniela Tran RDCS APPROVED REPORT EXAM: Two-dimensional and M-mode echocardiogram with Doppler and color Doppler. Other Information Quality : Good INDICATION Atrial Fibrillation 2D DIMENSIONS RVDd2.5 (2.9-3.5cm)Left Atrium(2D)4.1 (1.6-4.0cm) IVSd1.1 (0.7-1.1cm)Aortic Root(2D)2.7 (2.0-3.7cm) LVDd5.0 (3.9-5.9cm)LVOT Diameter1.9 (1.8-2.4cm) PWd0.9 (0.7-1.1cm)LVDs2.8 (2.5-4.0cm) FS (%) 30.0 %SV86.5 ml LVEF(%)60.0 (>50%) Aortic Valve AoV Peak Dario.117.5cm/sAoV VTI16.9cm AO Peak GR.5.5mmHgLVOT Peak Dario.74.6cm/s LVOT VTI 12.98cmAO Mean GR.3mmHg BEV (VMAX)1.63eb9IBT (VTI)2.14cm2 Mitral Valve MV E Verwhoqo329.7cm/sMV DECEL [id number] MV A Velocity2.7cm/sE/A Ratio46.2 Tricuspid Valve TR P. [id number]/sRAP [id number] TR Peak Gr.52dqRhSKDS64brOt LEFT VENTRICLE The left ventricle is normal size. There is mild left clinical hypertrophy The left ventricular systo lic function is normal and the ejection fraction is within normal range. The Ejection Fraction is 60- 65%. There is normal LV segmental wall motion. Diastolic function could not be assessed in view of at rial fibrillation RIGHT VENTRICLE The right ventricle is normal size. The right ventricular systolic function is normal. ATRIA The left atrium is mildly dilated. The right atrium is mild to moderately dilated. The interatrial se ptum is intact with no evidence for an atrial septal defect or patent foramen ovale as noted on 2-D o r Doppler imaging. AORTIC VALVE There is mild aortic valve sclerosis without stenosis slight accelerated velocities but with normal o pening Doppler and Color Flow revealed trace aortic regurgitation. There is no significant aortic elena vular stenosis. MITRAL VALVE The mitral valve is calcified but opens well. Mitral annular calcification is mild. There is no evide nce of mitral valve prolapse. There is no mitral valve stenosis. There is mild mitral regurgitation TRICUSPID VALVE The tricuspid valve is normal in structure and function. Doppler and Color Flow revealed mild tricusp id regurgitation. There is moderate pulmonary hypertension. The PA pressure was estimated at 66 mmHg. There is no tricuspid valve stenosis. PULMONIC VALVE The pulmonary valve is normal in structure and function. Doppler and Color Flow revealed no pulmonic valvular regurgitation. There is no pulmonic valvular stenosis. GREAT VESSELS The aortic root is normal in size. The ascending aorta is mildly dilated at 3.7 cm. The IVC is dilate d and shows less than 50% variation with respiration PERICARDIAL EFFUSION There is no evidence of significant pericardial effusion. Critical Notification Critical Value: No <Conclusion> There is mild left clinical hypertrophy The left ventricular systolic function is normal and the ejection fraction is within normal range. The left atrium is mildly dilated. The right atrium is mild to moderately dilated. There is mild aortic valve sclerosis without stenosis slight accelerated velocities but with normal o pening Doppler and Color Flow revealed trace aortic regurgitation. Mitral annular calcification is mild. There is mild mitral regurgitation There is moderate pulmonary hypertension. The PA pressure was estimated at 66 mmHg. The IVC is dilated and shows less than 50% variation with respiration The ascending aorta is mildly dilated at 3.7 cm. Signed by : JEFF GRANDA, Electronically Approved : 02/22/2018 12:26:47
== END 2018-02-22 14:38 | disposition home health service (06) | DRG 690 ==
LOC: 1 SOUTH 16:41
PROVIDERS: ADMIT Family Medicine; ATTEND Family Medicine
DX: N12 Tubulo-interstitial nephritis, not specified as acute or chronic (principal); D69.6 Thrombocytopenia, unspecified; I48.0 Paroxysmal atrial fibrillation; E83.42 Hypomagnesemia; E87.6 Hypokalemia; E03.9 Hypothyroidism, unspecified; E66.9 Obesity, unspecified; D86.9 Sarcoidosis, unspecified; E78.2 Mixed hyperlipidemia; R94.31 Abnormal electrocardiogram [ECG] [EKG]; I25.119 Atherosclerotic heart disease of native coronary artery with unspecified angina pectoris; M81.0 Age-related osteoporosis without current pathological fracture; K29.00 Acute gastritis without bleeding; I10 Essential (primary) hypertension; K80.20 Calculus of gallbladder without cholecystitis without obstruction; Z68.33 Body mass index [BMI] 33.0-33.9, adult; Z82.49 Family history of ischemic heart disease and other diseases of the circulatory system; Z79.01 Long term (current) use of anticoagulants; Z79.899 Other long term (current) drug therapy; Z90.710 Acquired absence of both cervix and uterus; Z80.0 Family history of malignant neoplasm of digestive organs; Z80.52 Family history of malignant neoplasm of bladder
CPT/HCPCS: 36415; 71046; 74176; 76700; 80048; 80053; 81001; 83605; 83735; 84132; 84443; 84484; 85025; 85379; 85651; 87040; 87086; 93005; 93306; 94640; J1650; J1956; J3475; J3480; J3490; J7613; J7626; Q0162; J7030

== ENCOUNTER 2018-02-23 15:27 | Observation (INO) | payer MEDICARE ==
[~2018-02-23] VITALS: Ht 152.4 cm; Wt 73.1 kg
[~2018-02-23 15:27] MED LIST: ACET325T9 PO; APIX5TAB3 PO; ASCO500T2 PO; CALC-157 PO; CYAN10005 PO; DILT180C29 PO; FLUT1AER IH; FURO20TA3 PO; LEVO137T3 PO; LISI-334 PO; LISI1TAB7 PO; MELO7.5T29 PO; METO50TA6 PO; Magnesium Chloride Er PO; OCCUVITE PO; POTA20TA4 PO; VERA240C2 PO
[2018-02-23 15:51] VITALS: BP 136/79
--- NOTE | 2018-02-23 16:20 | RAD ---
EXAM: Chest, 2 views. HISTORY: Dyspnea. COMPARISON: 02/19/2018 FINDINGS: Frontal and lateral views of the chest are obtained. There is been no significant change in bilateral perihilar predominant diffuse interstitial infiltrate and small pleural effusions. There is cardiomegaly. There is no pneumothorax. There are calcified granulomas. IMPRESSION: 1. No significant change in perihilar predominant interstitial infiltrate and small pleural effusions. 2. Cardiomegaly. Electronically signed by: Christy Resendiz MD (02/23/2018 4:17 PM) [id number]
[2018-02-23 16:50] LABS: BASO % 1 % (0-3); EOS # 0.1 x10^3/uL (0.0-0.7); EOS % 2 % (0-3); HEMATOCRIT 42.5 % (36.0-47.0); HEMOGLOBIN 14.5 g/dL (12.0-15.5); LYMPH # 1.5 x10^3/uL (1.0-4.8); LYMPH % 26 % (24-48); MEAN CORPUSCULAR HEMOGLOBIN 32 pg (25-35); MEAN CORPUSCULAR HGB CONC 34 g/dL (31-37); MEAN CORPUSCULAR VOLUME 94 fL (79-100); MONO # 0.7 x10^3/uL (0.0-1.1); MONO % 12 % (0-9); NEUT # 3.4 x10^3uL (1.8-7.7); NEUT % 59 % (31-73); PLATELET COUNT 229 x10^3/uL (140-400); RED BLOOD COUNT 4.53 x10^6/uL (3.50-5.40); RED CELL DISTRIBUTION WIDTH 13.8 % (11.5-14.5); WHITE BLOOD COUNT 5.6 x10^3/uL (4.0-11.0)
[2018-02-23 16:54] LABS: ALBUMIN 3.1 g/dL (3.4-5.0); ALBUMIN/GLOBULIN RATIO 0.7 (1.0-1.7); CALCIUM 9.3 mg/dL (8.5-10.1); CREATININE 0.9 mg/dL (0.6-1.0); GFR 60.4; POTASSIUM 3.6 mmol/L (3.5-5.1); TOTAL BILIRUBIN 0.4 mg/dL (0.2-1.0); TOTAL PROTEIN 7.3 g/dL (6.4-8.2)
[2018-02-23] MEDS ORDERED: ACETAMINOPHEN 325 MG TABLET PO PRN (18:00)
[2018-02-23 18:11] LABS: BACTERIA,URINE 0 /HPF (0-FEW); BILIRUBIN,URINE NEG (NEG); CLARITY,URINE HAZY; COLOR,URINE YELLOW; GLUCOSE,URINE NEG (NEG); NITRITE,URINE NEG (NEG); SQUAMOUS EPITHELIAL CELL,UR OCC /LPF; UROBILINOGEN,URINE 0.2 mg/dL (0.2 mg/dL)
[2018-02-23 18:12] LABS: HYALINE CASTS, URINE MOD /HPF
[2018-02-23] MEDS ORDERED: FUROSEMIDE 40 MG/4 ML VIAL IVP ONE (18:15)
[2018-02-23 18:19] LABS: BGAS PH 7.51 (7.35-7.45)
[2018-02-23 19:30] VITALS: BP 157/91
[2018-02-23] MEDS: APIXABAN 5 MG TABLET. PO SCH (20:40)
[2018-02-23] MEDS: METOPROLOL TART IMMED RELEASE 50 MG TABLET PO SCH (20:41)
[2018-02-23] MEDS: ALBUTEROL SULFATE 2.5 MG/3 ML NEBU. NEB SCH (21:27)
[2018-02-23] MEDS: BUDESONIDE 0.5 MG/2 ML NEBU NEB SCH (21:27)
[2018-02-23 22:32] VITALS: BP 143/84
[2018-02-24] MEDS: ALBUTEROL SULFATE 2.5 MG/3 ML NEBU. NEB SCH ×4 (05:35→21:37)
[2018-02-24 06:19] VITALS: BP 156/89
[2018-02-24 06:37] LABS: BASO % 1 % (0-3); EOS # 0.1 x10^3/uL (0.0-0.7); EOS % 2 % (0-3); HEMATOCRIT 41.1 % (36.0-47.0); HEMOGLOBIN 13.6 g/dL (12.0-15.5); LYMPH % 45 % (24-48); MEAN CORPUSCULAR HEMOGLOBIN 31 pg (25-35); MEAN CORPUSCULAR HGB CONC 33 g/dL (31-37); MEAN CORPUSCULAR VOLUME 93 fL (79-100); MONO # 0.5 x10^3/uL (0.0-1.1); MONO % 12 % (0-9); NEUT # 1.8 x10^3uL (1.8-7.7); NEUT % 41 % (31-73); PLATELET COUNT 199 x10^3/uL (140-400); WHITE BLOOD COUNT 4.5 x10^3/uL (4.0-11.0)
[2018-02-24 06:49] LABS: CALCIUM 8.6 mg/dL (8.5-10.1); CREATININE 0.7 mg/dL (0.6-1.0); GFR 80.7
[2018-02-24] MEDS ORDERED: IOHEXOL 300 MG/ML 75 ML VIAL. IV ONE (08:15)
[2018-02-24] MEDS ORDERED: NON FORMULARY ITEM (Fluticasone/Vilanterol (Breo Ellipta 100-25 Mcg Inh) 1 PUFF) IH SCH (09:00)
--- NOTE | 2018-02-24 09:09 | PDOC2 ---
CONSULT Date of Admission DATE: 02/24/18 TIME: 09:00 Reason for Consult: Dyspnea. Referring Physician: Joshua Sy MD Chief Complaint Dyspnea. History of Present Illness She is a very pleasant 77-year-old female who is well known to our service. We had previously been following her for hypertension. Last week she presented to [facility] with chest pain and dyspnea. She had negative cardiac enzyme levels at that time. She was found to be in atrial fibrillation with rapid ventricular rate. Her symptoms were felt to be due to the atrial fibrillation. She was placed on diltiazem with improved rate control. She was then discharged home 2 days ago. However, yesterday she was still having a significant amount of shortness of breath at home. She was seen by the visiting nurse who called her primary provider and they decided she should be readmitted to the hospital for treatment of her dyspnea. Last evening she was given IV Lasix on the medical floor. This helped improve some lower extremity edema she was having but she still feels fairly short of breath. She denies any further chest pain which she was having last week. She does have a nonproductive cough but denies fever chills. She denies any history of underlying pulmonary disease. She denies paroxysmal nocturnal dyspnea, orthopnea, palpitations, lightheadedness, or syncope. Because of the ongoing shortness of breath, a cardiology consultation was requested. Cardiovascular: AFIB, CAD, HTN Pulmonary: No pertinent hx, Other Past Surgical History Nothing significant. Family History She denies any family history of premature coronary artery disease. Smoke: No Lives: with Family Current Medications Current Medications Acetaminophen (Tylenol) 650 mg PRN Q6HRS PRN PO PAIN / TEMP; Start 02/23/18 at 18:00 Apixaban (Eliquis) 5 mg BID PO Last administered on 02/23/18at 20:40; Start at 21:00 Ascorbic Acid (Vitamin C) 500 mg DAILY PO ; Start 02/24/18 at 09:00 Calcium/Vitamin D (Oscal D 500mg/ 200uts) 2 tab DAILY PO ; Start 02/24/18 at 09: 00 Cyanocobalamin (Vitamin B-12) 1,000 mcg DAILY PO ; Start 02/24/18 at 09:00 Diltiazem HCl (Cardizem 24hr Cd) 360 mg DAILY PO ; Start 02/24/18 at 09:00 Levothyroxine Sodium (Synthroid) 137 mcg DAILYAC PO ; Start 02/24/18 at 07:30 Lisinopril (Prinivil) 20 mg DAILY PO ; Start 02/24/18 at 09:00 Metoprolol Tartrate (Lopressor) 50 mg BID PO Last administered on 02/23/18at 20: 41; Start 02/23/18 at 21:00 Potassium Chloride (Klor-Con) 20 meq DAILY PO ; Start 02/24/18 at 09:00 Non-Formulary Medication (Fluticasone/ Vilanterol (Breo Ellipta 100-25 Mcg Inh) ) 1 puff DAILY IH ; Start 02/24/18 at 09:00; Status UNV Magnesium Chloride (Mag Delay) 64 mg DAILY PO ; Start 02/24/18 at 09:00 Multivitamins/ Minerals (I-Doron) 1 tab DAILY PO ; Start 02/24/18 at 09:00 Furosemide (Lasix) 40 mg 1X ONCE IVP Last administered on 02/23/18at 20:40; Start 02/23/18 at 18:15; Stop 02/23/18 at 18:16; Status DC Albuterol Sulfate (Ventolin) 2.5 mg RTQID NEB Last administered on 02/24/18at 05: 35; Start 02/23/18 at 20:00 Budesonide (Pulmicort) 0.5 mg RTBID NEB Last administered on 02/23/18at 21:27; Start 02/23/18 at 20:00 Iohexol (Omnipaque 300 Mg/ml) 75 ml 1X ONCE IV Last administered on 02/24/18at 08:50; Start 02/24/18 at 08:15; Stop 02/24/18 at 08:16; Status DC Furosemide (Lasix) 40 mg BID92 IVP ; Start 02/24/18 at 09:00 Active Scripts Active Furosemide 20 Mg Tablet 20 Mg PO DAILY Lisinopril 20 Mg Tablet 20 Mg PO DAILY [Magnesium Chloride Er] 64 MG Tablet.er 64 Mg PO DAILY Tylenol (Acetaminophen) 325 Mg Tablet 650 Mg PO PRN Q6HRS PRN Metoprolol Tartrate 50 Mg Tablet 50 Mg PO BID Diltiazem 24HR Cd (Diltiazem Hcl) 180 Mg Cap.er.24h 360 Mg PO DAILY Eliquis (Apixaban) 5 Mg Tablet 5 Mg PO BID Reported Breo Ellipta 100-25 Mcg Inh (Fluticasone/Vilanterol) 1 Each Aer.pow.ba 1 Puff IH DAILY LAST DOSE GIVEN: DATE: TIME: NEXT DOSE DUE: DATE: TIME: Vitamin B-12 (Cyanocobalamin (Vitamin B-12)) 1,000 Mcg Tablet 1 Tab PO DAILY LAST DOSE GIVEN: DATE: TIME: NEXT DOSE DUE: DATE: TIME: Calcium 500 + Vit D 200 Tablet (Calcium Carbonate/Vitamin D3) 1 Each Tablet 2 Each PO DAILY LAST DOSE GIVEN: DATE: TIME: NEXT DOSE DUE: DATE: TIME: Vitamin C (Ascorbic Acid) 500 Mg Tablet 500 Mg PO DAILY LAST DOSE GIVEN: DATE: TIME: NEXT DOSE DUE: DATE: TIME: [Occuvite] 1 Tab PO DAILY LAST DOSE GIVEN: DATE: TIME: NEXT DOSE DUE: DATE: TIME: Klor-Con M20 (Potassium Chloride) 20 Meq Tab.er.prt 1 Tab PO DAILY LAST DOSE GIVEN: DATE: TIME: NEXT DOSE DUE: DATE: TIME: Levothyroxine Sodium 137 Mcg Tablet 1 Tab PO DAILYAC LAST DOSE GIVEN: DATE: TIME: NEXT DOSE DUE: DATE: TIME: Allergies: Coded Allergies: prochlorperazine (Verified Allergy, Intermediate, 02/20/18) Review of System Review of 10 organ systems is as per the history of present illness, otherwise negative. General: Alert, Oriented X3, Cooperative, No acute distress HEENT: Atraumatic, EOMI, Mucous membr. moist/pink Lungs: Clear to auscultation, Normal air movement Heart: Normal S1, Normal S2, Other (Tachycardia with irregularly irregular rate and rhythm and a 2/6 systolic ejection murmur.) Abdomen: Normal bowel sounds, Soft, No tenderness, No hepatospenomegaly Extremities: No clubbing, No cyanosis, Normal pulses, No tenderness/swelling, Other ( Trace bilateral pretibial edema.) Skin: No rashes, No breakdown, No significant lesion Neuro: Normal speech, Strength at 5/5 X4 ext, Normal tone, Cranial nerves 3-12 NL Psych/Mental Status: Mental status NL, Mood NL VITALS Vital Signs Date Time Temp Pulse Resp B/P (MAP) Pulse Ox O2 Delivery O2 Flow Rate FiO2 02/24/18 06:19 98.2 87 18 156/89 (111) 96 Nasal Cannula 2.0 Labs Laboratory Tests Test 02/23/18 16:30 02/23/18 17:30 02/23/18 17:55 02/24/18 06:19 White Blood Count 5.6 x10^3/uL (4.0-11.0) 4.5 x10^3/uL (4.0-11.0) Red Blood Count 4.53 x10^6/uL (3.50-5.40) 4.40 x10^6/uL (3.50-5.40) Hemoglobin 14.5 g/dL (12.0-15.5) 13.6 g/dL (12.0-15.5) Hematocrit 42.5 % (36.0-47.0) 41.1 % (36.0-47.0) Mean Corpuscular Volume 94 fL (79-100) 93 fL (79-100) Mean Corpuscular Hemoglobin 32 pg (25-35) 31 pg (25-35) Mean Corpuscular Hemoglobin Concent 34 g/dL (31-37) 33 g/dL (31-37) Red Cell Distribution Width 13.8 % (11.5-14.5) 14.0 % (11.5-14.5) Platelet Count 229 x10^3/uL (140-400) 199 x10^3/uL (140-400) Neutrophils (%) (Auto) 59 % (31-73) 41 % (31-73) Lymphocytes (%) (Auto) 26 % (24-48) 45 % (24-48) Monocytes (%) (Auto) 12 % (0-9) 12 % (0-9) Eosinophils (%) (Auto) 2 % (0-3) 2 % (0-3) Basophils (%) (Auto) 1 % (0-3) 1 % (0-3) Neutrophils # (Auto) 3.4 x10^3uL (1.8-7.7) 1.8 x10^3uL (1.8-7.7) Lymphocytes # (Auto) 1.5 x10^3/uL (1.0-4.8) 2.0 x10^3/uL (1.0-4.8) Monocytes # (Auto) 0.7 x10^3/uL (0.0-1.1) 0.5 x10^3/uL (0.0-1.1) Eosinophils # (Auto) 0.1 x10^3/uL (0.0-0.7) 0.1 x10^3/uL (0.0-0.7) Basophils # (Auto) 0.0 x10^3/uL (0.0-0.2) 0.0 x10^3/uL (0.0-0.2) D-Dimer (Sujatha) 0.77 mg/L (0.00-0.50) Sodium Level 142 mmol/L (136-145) 144 mmol/L (136-145) Potassium Level 3.6 mmol/L (3.5-5.1) 3.0 mmol/L (3.5-5.1) Chloride Level 103 mmol/L (98-107) 104 mmol/L (98-107) Carbon Dioxide Level 34 mmol/L (21-32) 33 mmol/L (21-32) Anion Gap 5 (6-14) 7 (6-14) Blood Urea Nitrogen 17 mg/dL (7-20) 15 mg/dL (7-20) Creatinine 0.9 mg/dL (0.6-1.0) 0.7 mg/dL (0.6-1.0) Estimated GFR (Cockcroft-Gault) 60.4 80.7 BUN/Creatinine Ratio 19 (6-20) Glucose Level 126 mg/dL (70-99) 107 mg/dL (70-99) Calcium Level 9.3 mg/dL (8.5-10.1) 8.6 mg/dL (8.5-10.1) Total Bilirubin 0.4 mg/dL (0.2-1.0) Aspartate Amino Transf (AST/SGOT) 28 U/L (15-37) Alanine Aminotransferase (ALT/SGPT) 55 U/L (14-59) Alkaline Phosphatase 117 U/L (46-116) Creatine Kinase 144 U/L (26-192) Troponin I Quantitative < 0.017 ng/mL (0-0.055) KX-Tqz-K-Type Natriuretic Peptide 3109 pg/mL (0-449) Total Protein 7.3 g/dL (6.4-8.2) Albumin 3.1 g/dL (3.4-5.0) Albumin/Globulin Ratio 0.7 (1.0-1.7) Urine Collection Type Unknown Urine Color Yellow Urine Clarity Hazy Urine pH 5.5 Urine Specific [place] 1.010 Urine Protein 30 mg/dl (NEG-TRACE) Urine Glucose (UA) Neg mg/dL (NEG) Urine Ketones (Stick) Neg mg/dL (NEG) Urine Blood Trace (NEG) Urine Nitrite Neg (NEG) Urine Bilirubin Neg (NEG) Urine Urobilinogen Dipstick 0.2 mg/dL (0.2 mg/dL) Urine Leukocyte Esterase Mod (NEG) Urine RBC 1-2 /HPF (0-2) Urine WBC 11-20 /HPF (0-4) Urine Squamous Epithelial Cells Occ /LPF Urine Bacteria 0 /HPF (0-FEW) Urine Hyaline Casts Mod /HPF Urine Mucus Mod /LPF Blood Gas pH 7.51 (7.35-7.45) Blood Gas PCO2 37 mmHg (35-45) Blood Gas PO2 55 mmHg (71-100) Blood Gas HCO3 29 mmol/L (22-26) Arterial Bld O2 Saturation (Calc) 91 % (92-99) FiO2 21 % Assessment/Plan CHF, acute, with preserved ejection fraction. She does have some fluffy pulmonary infiltrates on her chest x-ray and a mildly elevated BNP level. Clinically, she seems to have some degree of mild congestive heart failure. This is a new diagnosis for the patient. This may be related to the atrial fibrillation with rapid ventricular rate. I will start the patient on intravenous diuretics and obtain a follow-up chest x-ray in the morning. Atrial fibrillation, persistent. She has been taking Eliquis for stroke prevention and diltiazem for rate control. Her heart rates are somewhat high at times here in the hospital. If this persists, we may need to increase the diltiazem. The plan is for an outpatient cardioversion in approximately 4-6 weeks after she has been on Eliquis for this period of time. Essential hypertension. Blood pressure appears reasonably controlled. However , if she continues to have tachycardia, we may need to increase the diltiazem. Abnormal electrocardiogram. She has nonspecific ST changes on her electrocardiogram from her previous admission and was having chest pain during the previous admission. We plan for an outpatient stress test after her heart failure is improved. Problems: BETI MIX Jr, MD February 24, 2018 09:09
[2018-02-24] MEDS: ASCORBIC ACID 500 MG TABLET PO SCH (09:18)
[2018-02-24] MEDS: LISINOPRIL 20 MG TABLET PO SCH (09:18)
[2018-02-24] MEDS: MULTIVITAMIN I-VITE TABLET. PO SCH (09:18)
[2018-02-24] MEDS: CALCIUM CARB/VIT D3 500/200 TABLET PO SCH (09:18)
[2018-02-24] MEDS: CYANOCOBALAMIN (VITAMIN B-12) 1,000 MCG TABLET. PO SCH (09:18)
[2018-02-24] MEDS: METOPROLOL TART IMMED RELEASE 50 MG TABLET PO SCH ×2 (09:19→21:30)
[2018-02-24] MEDS: POTASSIUM CHLORIDE 20 MEQ TABLET.ER. PO SCH ×3 (09:19→16:59)
[2018-02-24] MEDS: MAGNESIUM CHLORIDE ER 64 MG TABLET.ER PO SCH (09:19)
[2018-02-24] MEDS: LEVOTHYROXINE 137 MCG TABLET PO SCH (09:19)
[2018-02-24] MEDS: APIXABAN 5 MG TABLET. PO SCH ×2 (09:19→21:30)
[2018-02-24] MEDS: FUROSEMIDE 40 MG/4 ML VIAL IVP SCH ×2 (09:26→17:00)
[2018-02-24] MEDS: BUDESONIDE 0.5 MG/2 ML NEBU NEB SCH ×2 (09:29→21:37)
[2018-02-24] MEDS ORDERED: ELECTROLYTE (NON-ICU) PROTOCOL MC PRN (09:45)
--- NOTE | 2018-02-24 10:06 | RAD ---
CTA of the chest with contrast, 02/24/2018: HISTORY: Elevated d-dimer, sarcoidosis Multidetector CT imaging was performed following an IV bolus injection of iodinated contrast material. Multiplanar reconstructions were produced including coronal and sagittal MIP images. The main pulmonary artery is enlarged measuring 4.7 cm in width. There is reflux of some of the injected contrast into the inferior vena cava and hepatic veins raising the possibility of elevated right heart pressures. The central pulmonary arteries are well opacified. No filling defects are seen to suggest pulmonary emboli. There is mild distortion and extrinsic narrowing of some of the pulmonary arteries at the right hilum. There are numerous calcified hilar and mediastinal lymph nodes. There is a given history of sarcoidosis. Associated scarring is probably causing the changes at the right hilum. The thoracic aorta is of normal caliber. There are moderate scattered coronary artery calcifications. A small pericardial effusion is present. No definite mediastinal adenopathy is seen. Small bilateral pleural effusions are present. There is interlobular septal thickening which is most prominent in the lung bases. There is streaky atelectasis/infiltrate in the anterolateral aspect of the right upper lobe with mild underlying bronchiectasis. There is minimal infiltrate posteromedially in the right upper lobe. There are also streaky densities and mild bronchiectasis medially in the right middle lobe. Several scattered calcifications are present in the right lung. There are additional linear opacities in both lungs, likely representing scarring. IMPRESSION: 1. No CT evidence of central pulmonary emboli. 2. Enlargement of the main pulmonary artery raising the possibility of pulmonary hypertension. This is supported by the presence of contrast reflux into the inferior vena cava suggesting elevated right heart pressures. 3. Small pericardial effusion and small bilateral pleural effusions. 4. Moderate coronary artery calcifications. 5. Interlobular septal thickening in the lung bases suggesting interstitial edema. 6. Moderate bilateral pleural-parenchymal scarring, likely related to the patient's history of sarcoidosis. 7. Streaky infiltrate and/or scarring with mild underlying bronchiectasis in the right upper and middle lobes. Electronically signed by: Juan Antonio Hitchcock MD (02/24/2018 10:03 AM) [facility]
--- NOTE | 2018-02-24 10:14 | EKG ---
[address] [address] Test Date: 2018-02-24 Test Time: 08:56:20 Pat Name: ODILIA ROWAN Department: Room: 119 A Gender: F It Security Consulting Director: MG : 1940 Requested By: KOURTNEY RUIZ Order Number: [id number] Reading MD: Everett Salazar MD Measurements Intervals [place] Rate: 113 P: MO: QRS: 118 QRSD: 82 T: -30 QT: 370 QTc: 507 Interpretive Statements ATRIAL FIBRILLATION WITH RVR NON-SPECIFIC ST/T CHANGES Electronically Signed On 02-25-2018 12:46:54 CDT by Everett Salazar MD
[2018-02-24] MEDS: CEFPODOXIME PROXETIL 100 MG TABLET PO SCH ×2 (10:32→21:30)
[2018-02-24 11:01] VITALS: BP 131/92
--- NOTE | 2018-02-24 11:36 | HP ---
ADMIT DATE: 02/23/2018 HISTORY OF PRESENT ILLNESS: A 77-year-old female had difficulty breathing at home. She was in acute respiratory distress and was brought into the hospital, recently been treated for acute atrial fibrillation, acute congestive heart failure with preserved ejection fraction is the new diagnosis which she did not have the last time. In any case, the patient was admitted for IV diuresis. Further evaluation with Cardiology and make further assessment on her as indicated. PAST MEDICAL HISTORY: Atrial fibrillation with rapid ventricular response, history of sarcoidosis, hysterectomy, arthritis, influenza, pneumococcal vaccinations are up-to-date, cataract extraction. FAMILY HISTORY: Brother with cerebral aneurysm. Father with cancer. Mother with bladder cancer. Brother, two brothers with stroke, father with coronary artery disease, and family history of arrhythmias. ALLERGIES: TO PROCHLORPERAZINE. CODE STATUS: She is a DNR. SOCIAL HISTORY: The patient denies smoking, alcohol or drug use. MEDICATIONS: Eliquis 5 b.i.d., metoprolol 50, diltiazem 360, lisinopril 20, calcium carbonate, vitamin D, potassium chloride, furosemide, orally levothyroxine 137 mcg daily, vitamin B12, ascorbic acid, magnesium chloride, and Ocuvite. REVIEW OF SYSTEMS: Positive for, the patient has increased shortness of breath, dyspnea with her CHF, and also her sarcoidosis which is a chronic problem obviously. The patient denies chest pain, denies abdominal pain, denies any melena, hematochezia, hematemesis, and neurologically intact. PHYSICAL EXAMINATION: GENERAL: This is a pleasant white female, moderate amount of distress. She is having difficulty breathing. VITAL SIGNS: Blood pressure 157/91, pulse 109, temperature 98.2, respiratory rate 20. She is 91% on room air. HEENT: The patient's head was atraumatic, normocephalic. Eyes were PERRLA without jaundice. The mouth and throat were normal. NECK: Supple, no JVD, carotids, or thyromegaly. LUNGS: Show diminished breath sounds throughout with rhonchi noted from the apices down to the bases of the lungs with rhonchi noted. CARDIOVASCULAR: Irregularly irregular rhythm. ABDOMEN: Soft, nontender, protuberant. EXTREMITIES: No clubbing, cyanosis; +2 pitting edema on admission, pulse is noted distally. NEUROLOGIC: The patient is alert and oriented. Speech is fluent, spontaneous and appropriate. Cranial nerves 2-12 are grossly intact. The patient is moving all extremities well. LABORATORY AND DIAGNOSTIC DATA: Chest x-ray last night showed interstitial, possible infiltrate. Her BNP was elevated over 3000. Troponin is negative. Potassium came down. IMPRESSION: Therefore of acute congestive heart failure with maintained ejection fraction, sarcoidosis, also contributing to dyspnea, moderate protein malnutrition, hypokalemia, peripheral edema, atrial fibrillation. KOURTNEY RUIZ MD DR: SYED/santhosh JOB#: [id number] / [id number]
[2018-02-24 15:00] VITALS: BP 124/87
[2018-02-24] MEDS ORDERED: POTASSIUM CHLORIDE 20 MEQ TABLET.ER. PO ONE (16:45)
[2018-02-24 19:38] VITALS: BP 131/77
[2018-02-24] MEDS: LACTOBACILLUS RHAMNOSUS GG 1 CAPSULE. PO SCH (21:30)
[2018-02-25 04:25] VITALS: BP 135/89
[2018-02-25] MEDS: ALBUTEROL SULFATE 2.5 MG/3 ML NEBU. NEB SCH (05:35)
[2018-02-25] MEDS: CEFPODOXIME PROXETIL 100 MG TABLET PO SCH (08:44)
[2018-02-25] MEDS: MAGNESIUM CHLORIDE ER 64 MG TABLET.ER PO SCH (08:45)
[2018-02-25] MEDS: POTASSIUM CHLORIDE 20 MEQ TABLET.ER. PO SCH (08:45)
[2018-02-25] MEDS: CALCIUM CARB/VIT D3 500/200 TABLET PO SCH (08:45)
[2018-02-25] MEDS: CYANOCOBALAMIN (VITAMIN B-12) 1,000 MCG TABLET. PO SCH (08:45)
[2018-02-25] MEDS: LACTOBACILLUS RHAMNOSUS GG 1 CAPSULE. PO SCH (08:45)
[2018-02-25] MEDS: METOPROLOL TART IMMED RELEASE 50 MG TABLET PO SCH (08:45)
[2018-02-25] MEDS: LEVOTHYROXINE 137 MCG TABLET PO SCH (08:45)
[2018-02-25] MEDS: ASCORBIC ACID 500 MG TABLET PO SCH (08:45)
[2018-02-25 08:46] VITALS: BP 135/89
[2018-02-25] MEDS: LISINOPRIL 20 MG TABLET PO SCH (08:46)
[2018-02-25] MEDS: MULTIVITAMIN I-VITE TABLET. PO SCH (08:46)
[2018-02-25] MEDS: APIXABAN 5 MG TABLET. PO SCH (08:46)
--- NOTE | 2018-02-25 09:14 | RAD ---
Chest, 2 views, 02/25/2018: HISTORY: Congestive heart failure Comparison is made to a study from 02/23/2018. The heart is enlarged. Streaky bilateral perihilar and basilar opacities are unchanged. There is unchanged blunting of the lateral and posterior costophrenic angles due to pleural fluid. No new pulmonary abnormality is seen. IMPRESSION: 1. Cardiomegaly with unchanged small bilateral pleural effusions. 2. Unchanged streaky bilateral parenchymal opacities compatible with a combination of atelectasis/infiltrate and scarring in this patient with a history of sarcoidosis. Electronically signed by: Juan Antonio Hitchcock MD (02/25/2018 9:11 AM) [facility]
[2018-02-25] MEDS ORDERED: IPRA3AMP NEB (10:26)
[2018-02-25] MEDS ORDERED: METO50TA6 PO (10:29)
--- NOTE | 2018-02-25 13:33 | PDOC ---
SOURAV DURAN CAMERA REPAIRER 02/25/18 1333: PROGRESS NOTES Assessment We are seeing the patient for persistent atrial fibrillation and chf CHF, acute, with preserved ejection fraction. Improved after IV lasix. Likely secondary from atrial fibrillation with RVR. Education on condition and treatment done. Home with lasix oral and potassium Atrial fibrillation, persistent. She has been taking Eliquis for stroke prevention and diltiazem/Metoprolol for rate control. Her heart rates are somewhat high and we will plan Two increase the metoprolol to 75 twice a day. She is already on maximum dose of diltiazem. At discharge she is going to come down to our office and get a 2 week Zio monitor so we can assess heart rate control. The plan is for an outpatient cardioversion in approximately 4-6 weeks after she has been on Eliquis for this period of time. Essential hypertension. Blood pressure is controlled. Abnormal electrocardiogram. She has nonspecific ST changes on her electrocardiogram from her previous admission and was having chest pain during the previous admission. We plan for an outpatient stress test after her heart failure is improved. Subjective She is feeling much better this morning and has been up walking with out shortness of breath. She has not had any palpitations that concerns her that she cannot tell when her heart rate is elevated. We discussed atrial fibrillation and congestive heart failure. We will do a monitor as an outpatient along with a stress test to get a better idea of how her heart is functioning. Objective Vital Signs Date Time Temp Pulse Resp B/P (MAP) Pulse Ox O2 Delivery O2 Flow Rate FiO2 02/25/18 08:46 78 135/89 02/25/18 08:00 Nasal Cannula 2.0 02/25/18 05:35 93 02/25/18 04:25 98.2 18 Intake and Output 02/25/18 07:00 Intake Total 480 ml Output Total 1750 ml Balance -1270 ml Intake Oral 480 ml Output Urine Total 1750 ml Abdomen: Normal bowel sounds, Soft Heart: Normal S1, Normal S2, Other (Irregular rhythm and rate) Extremities: No edema, Normal pulses General: Alert, Oriented X3, Cooperative HEENT: EOMI, Mucous membr. moist/pink Lungs: Clear to auscultation Psych/Mental Status: Mental status NL, Mood NL Review of Relevant I have reviewed the following items maude (where applicable) has been applied. Labs Laboratory Tests Test 02/23/18 16:30 02/23/18 17:30 02/23/18 17:55 02/24/18 06:19 White Blood Count 5.6 x10^3/uL (4.0-11.0) 4.5 x10^3/uL (4.0-11.0) Red Blood Count 4.53 x10^6/uL (3.50-5.40) 4.40 x10^6/uL (3.50-5.40) Hemoglobin 14.5 g/dL (12.0-15.5) 13.6 g/dL (12.0-15.5) Hematocrit 42.5 % (36.0-47.0) 41.1 % (36.0-47.0) Mean Corpuscular Volume 94 fL (79-100) 93 fL (79-100) Mean Corpuscular Hemoglobin 32 pg (25-35) 31 pg (25-35) Mean Corpuscular Hemoglobin Concent 34 g/dL (31-37) 33 g/dL (31-37) Red Cell Distribution Width 13.8 % (11.5-14.5) 14.0 % (11.5-14.5) Platelet Count 229 x10^3/uL (140-400) 199 x10^3/uL (140-400) Neutrophils (%) (Auto) 59 % (31-73) 41 % (31-73) Lymphocytes (%) (Auto) 26 % (24-48) 45 % (24-48) Monocytes (%) (Auto) 12 % (0-9) 12 % (0-9) Eosinophils (%) (Auto) 2 % (0-3) 2 % (0-3) Basophils (%) (Auto) 1 % (0-3) 1 % (0-3) Neutrophils # (Auto) 3.4 x10^3uL (1.8-7.7) 1.8 x10^3uL (1.8-7.7) Lymphocytes # (Auto) 1.5 x10^3/uL (1.0-4.8) 2.0 x10^3/uL (1.0-4.8) Monocytes # (Auto) 0.7 x10^3/uL (0.0-1.1) 0.5 x10^3/uL (0.0-1.1) Eosinophils # (Auto) 0.1 x10^3/uL (0.0-0.7) 0.1 x10^3/uL (0.0-0.7) Basophils # (Auto) 0.0 x10^3/uL (0.0-0.2) 0.0 x10^3/uL (0.0-0.2) D-Dimer (Sujatha) 0.77 mg/L (0.00-0.50) Sodium Level 142 mmol/L (136-145) 144 mmol/L (136-145) Potassium Level 3.6 mmol/L (3.5-5.1) 3.0 mmol/L (3.5-5.1) Chloride Level 103 mmol/L (98-107) 104 mmol/L (98-107) Carbon Dioxide Level 34 mmol/L (21-32) 33 mmol/L (21-32) Anion Gap 5 (6-14) 7 (6-14) Blood Urea Nitrogen 17 mg/dL (7-20) 15 mg/dL (7-20) Creatinine 0.9 mg/dL (0.6-1.0) 0.7 mg/dL (0.6-1.0) Estimated GFR (Cockcroft-Gault) 60.4 80.7 BUN/Creatinine Ratio 19 (6-20) Glucose Level 126 mg/dL (70-99) 107 mg/dL (70-99) Calcium Level 9.3 mg/dL (8.5-10.1) 8.6 mg/dL (8.5-10.1) Total Bilirubin 0.4 mg/dL (0.2-1.0) Aspartate Amino Transf (AST/SGOT) 28 U/L (15-37) Alanine Aminotransferase (ALT/SGPT) 55 U/L (14-59) Alkaline Phosphatase 117 U/L (46-116) Creatine Kinase 144 U/L (26-192) Troponin I Quantitative < 0.017 ng/mL (0-0.055) OP-Xzm-I-Type Natriuretic Peptide 3109 pg/mL (0-449) Total Protein 7.3 g/dL (6.4-8.2) Albumin 3.1 g/dL (3.4-5.0) Albumin/Globulin Ratio 0.7 (1.0-1.7) Urine Collection Type Unknown Urine Color Yellow Urine Clarity Hazy Urine pH 5.5 Urine Specific [place] 1.010 Urine Protein 30 mg/dl (NEG-TRACE) Urine Glucose (UA) Neg mg/dL (NEG) Urine Ketones (Stick) Neg mg/dL (NEG) Urine Blood Trace (NEG) Urine Nitrite Neg (NEG) Urine Bilirubin Neg (NEG) Urine Urobilinogen Dipstick 0.2 mg/dL (0.2 mg/dL) Urine Leukocyte Esterase Mod (NEG) Urine RBC 1-2 /HPF (0-2) Urine WBC 11-20 /HPF (0-4) Urine Squamous Epithelial Cells Occ /LPF Urine Bacteria 0 /HPF (0-FEW) Urine Hyaline Casts Mod /HPF Urine Mucus Mod /LPF Blood Gas pH 7.51 (7.35-7.45) Blood Gas PCO2 37 mmHg (35-45) Blood Gas PO2 55 mmHg (71-100) Blood Gas HCO3 29 mmol/L (22-26) Arterial Bld O2 Saturation (Calc) 91 % (92-99) FiO2 21 % Test 02/25/18 08:30 Potassium Level 4.0 mmol/L (3.5-5.1) Microbiology 02/23/18 Urine Culture - Preliminary, Resulted 02/23/18 Urine Culture Result 1 (SHAHRIAR) - Preliminary, Resulted Medications Current Medications Acetaminophen (Tylenol) 650 mg PRN Q6HRS PRN PO PAIN / TEMP; Start 02/23/18 at 18:00; Stop 02/25/18 at 12:11; Status DC Apixaban (Eliquis) 5 mg BID PO Last administered on 02/25/18at 08:46; Start 02/23 at 21:00; Stop 02/25/18 at 12:11; Status DC Ascorbic Acid (Vitamin C) 500 mg DAILY PO Last administered on 02/25/18at 08:45 ; Start 02/24/18 at 09:00; Stop 02/25/18 at 12:11; Status DC Calcium/Vitamin D (Oscal D 500mg/ 200uts) 2 tab DAILY PO Last administered on at 08:45; Start 02/24/18 at 09:00; Stop 02/25/18 at 12:11; Status DC Cyanocobalamin (Vitamin B-12) 1,000 mcg DAILY PO Last administered on at 08:45; Start 02/24/18 at 09:00; Stop 02/25/18 at 12:11; Status DC Diltiazem HCl (Cardizem 24hr Cd) 360 mg DAILY PO Last administered on at 08:46; Start 02/24/18 at 09:00; Stop 02/25/18 at 12:11; Status DC Levothyroxine Sodium (Synthroid) 137 mcg DAILYAC PO Last administered on at 08:45; Start 02/24/18 at 07:30; Stop 02/25/18 at 12:11; Status DC Lisinopril (Prinivil) 20 mg DAILY PO Last administered on 02/25/18at 08:46; Start 02/24/18 at 09:00; Stop 02/25/18 at 12:11; Status DC Metoprolol Tartrate (Lopressor) 50 mg BID PO Last administered on 02/25/18at 08: 45; Start 02/23/18 at 21:00; Stop 02/25/18 at 10:00; Status DC Potassium Chloride (Klor-Con) 20 meq DAILY PO Last administered on 02/25/18at 08 :45; Start 02/24/18 at 09:00; Stop 02/25/18 at 12:11; Status DC Non-Formulary Medication (Fluticasone/ Vilanterol (Breo Ellipta 100-25 Mcg Inh) ) 1 puff DAILY IH ; Start 02/24/18 at 09:00; Status UNV Magnesium Chloride (Mag Delay) 64 mg DAILY PO Last administered on 02/25/18at 08 :45; Start 02/24/18 at 09:00; Stop 02/25/18 at 12:11; Status DC Multivitamins/ Minerals (I-Doron) 1 tab DAILY PO Last administered on 02/25/18at 08:46; Start 02/24/18 at 09:00; Stop 02/25/18 at 12:11; Status DC Furosemide (Lasix) 40 mg 1X ONCE IVP Last administered on 02/23/18at 20:40; Start 02/23/18 at 18:15; Stop 02/23/18 at 18:16; Status DC Albuterol Sulfate (Ventolin) 2.5 mg RTQID NEB Last administered on 02/25/18at 05 :35; Start 02/23/18 at 20:00; Stop 02/25/18 at 12:11; Status DC Budesonide (Pulmicort) 0.5 mg RTBID NEB Last administered on 02/24/18at 21:37; Start 02/23/18 at 20:00; Stop 02/25/18 at 12:11; Status DC Iohexol (Omnipaque 300 Mg/ml) 75 ml 1X ONCE IV Last administered on 02/24/18at 08:50; Start 02/24/18 at 08:15; Stop 02/24/18 at 08:16; Status DC Furosemide (Lasix) 40 mg BID92 IVP Last administered on 02/24/18at 17:00; Start 02/24/18 at 09:00; Stop 02/25/18 at 10:00; Status DC Cefpodoxime Proxetil (Vantin) 200 mg BID PO Last administered on 02/25/18at 08: 44; Start 02/24/18 at 10:00; Stop 02/25/18 at 12:11; Status DC Info (Non-Icu Electrolyte Protocol) 1 ea CONT PRN PRN MC PER PROTOCOL; Start at 09:45; Stop 02/25/18 at 12:11; Status DC Lactobacillus Rhamnosus (Culturelle) 1 cap BID PO Last administered on at 08:45; Start 02/24/18 at 21:00; Stop 02/25/18 at 12:12; Status DC Potassium Chloride (Klor-Con) 40 meq Q4HRS PO Last administered on 02/24/18at 16: 59; Start 02/24/18 at 10:15; Stop 02/24/18 at 12:01; Status DC Potassium Chloride (Klor-Con) 40 meq 1X ONCE PO ; Start 02/24/18 at 16:45; Stop 02/24/18 at 16:46; Status DC Metoprolol Tartrate (Lopressor) 75 mg BID PO ; Start 02/25/18 at 21:00; Stop 08/05 at 21:00; Status DC Furosemide (Lasix) 20 mg DAILY PO ; Start 02/26/18 at 09:00; Stop 02/26/18 at 09 :00; Status DC Active Scripts Active Metoprolol Tartrate 50 Mg Tablet 75 Mg PO BID Duoneb 0.5-3(2.5) Mg/3 Ml (Albuterol/Ipratropium) 3 Ml Ampul.neb 3 Ml NEB QID Furosemide 20 Mg Tablet 20 Mg PO DAILY Lisinopril 20 Mg Tablet 20 Mg PO DAILY [Magnesium Chloride Er] 64 MG Tablet.er 64 Mg PO DAILY Tylenol (Acetaminophen) 325 Mg Tablet 650 Mg PO PRN Q6HRS PRN Diltiazem 24HR Cd (Diltiazem Hcl) 180 Mg Cap.er.24h 360 Mg PO DAILY Eliquis (Apixaban) 5 Mg Tablet 5 Mg PO BID Reported Breo Ellipta 100-25 Mcg Inh (Fluticasone/Vilanterol) 1 Each Aer.pow.ba 1 Puff IH DAILY LAST DOSE GIVEN: DATE: TIME: NEXT DOSE DUE: DATE: TIME: Vitamin B-12 (Cyanocobalamin (Vitamin B-12)) 1,000 Mcg Tablet 1 Tab PO DAILY LAST DOSE GIVEN: DATE: TIME: NEXT DOSE DUE: DATE: TIME: Calcium 500 + Vit D 200 Tablet (Calcium Carbonate/Vitamin D3) 1 Each Tablet 2 Each PO DAILY LAST DOSE GIVEN: DATE: TIME: NEXT DOSE DUE: DATE: TIME: Vitamin C (Ascorbic Acid) 500 Mg Tablet 500 Mg PO DAILY LAST DOSE GIVEN: DATE: TIME: NEXT DOSE DUE: DATE: TIME: [Occuvite] 1 Tab PO DAILY LAST DOSE GIVEN: DATE: TIME: NEXT DOSE DUE: DATE: TIME: Klor-Con M20 (Potassium Chloride) 20 Meq Tab.er.prt 1 Tab PO DAILY LAST DOSE GIVEN: DATE: TIME: NEXT DOSE DUE: DATE: TIME: Levothyroxine Sodium 137 Mcg Tablet 1 Tab PO DAILYAC LAST DOSE GIVEN: DATE: TIME: NEXT DOSE DUE: DATE: TIME: Vitals/I & O Vital Sign - Last 24 Hours 02/24/18 02/24/18 02/24/18 02/24/18 15:00 16:15 19:38 19:38 Temp 98.0 97.9 Pulse 63 75 Resp 20 B/P (MAP) 124/87 (99) 131/77 (95) Pulse Ox 94 98 93 O2 Delivery Nasal Cannula Nasal Cannula Nasal Cannula Nasal Cannula O2 Flow Rate 2.0 2.0 2.0 2.0 5/9/18 5/9/18 5/9/18 5/9/18 20:55 21:00 21:30 23:41 Pulse 75 85 B/P (MAP) 131/77 Pulse Ox 95 95 O2 Delivery Nasal Cannula Nasal Cannula O2 Flow Rate 2.0 2.0 02/25/18 02/25/18 02/25/18 02/25/18 04:25 05:35 08:00 08:45 Temp 98.2 Pulse 78 78 Resp 18 B/P (MAP) 135/89 (104) 135/89 Pulse Ox 94 93 O2 Delivery Nasal Cannula Nasal Cannula Nasal Cannula O2 Flow Rate 2.0 2.0 2.0 02/25/18 02/25/18 08:46 08:46 Pulse 78 78 B/P (MAP) 135/89 135/89 Intake and Output 02/24/18 02/24/18 02/25/18 15:00 23:00 07:00 Intake Total 120 ml 240 ml 120 ml Output Total 1250 ml 500 ml Balance 120 ml -1010 ml -380 ml BETI NORRIS Jr, MD 02/26/18 0639: PROGRESS NOTES Assessment The patient was seen by Sourav Duran APRN and I have reviewed her findings and plan and agree with above. Due to staffing constraints, we did not have an attending available on this day to see the patient. Beti Norris Jr., SOURAV TAO APRN February 25, 2018 13:33 BETI NORRIS Jr, MD February 26, 2018 06:39
--- NOTE | 2018-02-25 16:18 | DS ---
DATE OF DISCHARGE: 02/25/2018 HOSPITAL COURSE: A 77-year-old female came in with increased dyspnea, shortness of breath, had intermittent asthma. As a result of this, the patient was admitted. She was diuresed. She had acute onset of a heart failure, confirmed with Cardiology, even though she had normal left ventricular function. She had mild intermittent asthma and off and on as well, requiring nebulizer treatments and oxygen. She failed her 6-minute walk and as a result of this, the patient made excellent progress after diuresis. The patient had a BNP greater than 3000 initially, came down. She will follow up with her skin drier as an outpatient. She has home health. IMPRESSION: Acute systolic congestive heart failure, mild intermittent asthma, dyspnea, history of atrial fibrillation. The patient will be discharged home on a low-sodium diet, fluid restriction and also nebulizer treatments for her intermittent asthma. KOURTNEY RUIZ MD DR: SYED/santhosh JOB#: [id number] / [id number]
[2018-02-25] MEDS ORDERED: METOPROLOL TART IMMED RELEASE 50 MG TABLET PO SCH (21:00)
[2018-02-26] MEDS ORDERED: FUROSEMIDE 20 MG TABLET PO SCH (09:00)
== END 2018-02-25 11:50 | disposition home or self-care (01) ==
LOC: 1 SOUTH 15:27
PROVIDERS: ADMIT Family Medicine; ATTEND Family Medicine
DX: I50.43 Acute on chronic combined systolic (congestive) and diastolic (congestive) heart failure (principal); I48.1 Persistent atrial fibrillation; M19.90 Unspecified osteoarthritis, unspecified site; E87.6 Hypokalemia; D86.9 Sarcoidosis, unspecified; I11.0 Hypertensive heart disease with heart failure; I25.10 Atherosclerotic heart disease of native coronary artery without angina pectoris; J45.20 Mild intermittent asthma, uncomplicated; E44.0 Moderate protein-calorie malnutrition; Z80.52 Family history of malignant neoplasm of bladder; Z82.3 Family history of stroke; Z82.49 Family history of ischemic heart disease and other diseases of the circulatory system
CPT/HCPCS: 36415; 71046; 71275; 80048; 80053; 81001; 82550; 82803; 83880; 84132; 84484; 85025; 85379; 87086; 93005; 94618; 94640; 96374; 96376; 97110; 97162; G0378; G0379; G8978; G8979; J1940; J7613; J7626; Q9967